=== PATIENT | female | born 1980 | race Caucasian/White ===

== ENCOUNTER 2022-02-17 04:43 | Emergency (ER) | payer BC, SELFPAY ==
[2022-02-17 04:51] VITALS: BP 118/74; PULSE 99; RESP 16; TEMP 36.3; O2SAT 100
--- NOTE | 2022-02-17 05:18 | ED.FEMALEGU ---
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 Patient states since she had her most recent child she has had persistent heavy periods. Patient states that she has also been having more frequent periods. Patient did call her TWISTING OPERATOR, Dr. Chappell, and patient is said to be scheduled for an outpatient ultrasound. Patient states during the night she woke up to use the restroom and found that she had blood through her tampon. Patient states after she removed the tampon she did pass additional clots and she became concerned. Patient denies any lightheaded or dizziness. Patient denies any abdominal pain. Related Data Home Medications Medication Instructions Recorded Confirmed ferrous gluconate 236 mg (27 mg 236 mg PO DAILY 06/02/21 iron) tablet Bifidobacterium infantis 4 mg 4 mg PO DAILY 07/02/21 capsule Allergies Allergy/AdvReac Type Severity Reaction Status Date / Time No Known Allergies Allergy Verified 02/17/22 04:55 Review of Systems Review of Systems: CONSTITUTIONAL: Denies fever, chills, or sweats. EYES: Denies visual changes, redness, or discharge. ENT: Denies rhinorrhea, congestion, sore throat, or otalgia. CARDIOVASCULAR: Denies chest pain, palpitations, or edema. RESPIRATORY: Denies cough or dyspnea. GASTROINTESTINAL: Denies abdominal pain, nausea, vomiting, or diarrhea. GENITOURINARY: Vaginal bleeding SKIN: Denies rash or itching. MUSCULOSKELETAL: Denies back pain, joint pain, or myalgia. NEUROLOGIC: Denies headache, numbness, or weakness. [facility] Past Medical History Medical History Hyperthyroidism Surgical History Surgical History History of appendectomy Family History Family History Grandparent Hypertension Mother Hypertension Father Family history of Alzheimer's disease Social History Social History Smoking status: Former smoker Second hand tobacco smoke exposure: No Alcohol intake: current Drinks per week: 2 Substance use: never Substance use type: does not use Spiritual care concerns: No Agree to blood products: Yes Exam Narrative: APPEARANCE: Well appearing, no pain, no distress, well-nourished. HEAD: normocephalic, atraumatic. EYES: PERRLA/EOMI, conjunctivae clear. NECK: Supple. No adenopathy, no masses. RESPIRATORY: Airway patent, respirations nonlabored. Clear to auscultation bilaterally, no rales, rhonchi, wheezing. CARDIOVASCULAR: Regular rate and rhythm without murmurs rubs or gallops. ABDOMINAL: Soft, nontender, nondistended, normal bowel sounds Pelvic exam: Small amount of clot within the vaginal vault. Patient did have some clot being expressed from the cervix. No rapid refilling of the vaginal vault, no hemorrhaging. MUSCULOSKELETAL: Moves all extremities. Strength/ROM intact, No edema, No calf tenderness. NEURO: Alert. Cranial nerves II through XII intact. Grossly intact SKIN: Warm, dry. Normal Color Course Course Emergency Course: Patient's bleeding has significantly improved compared to what she was experiencing at home. No significant bleeding or hemorrhage witnessed in the emerge department. Patient's blood counts are within normal limits. Patient was encouraged with close follow-up with TWISTING OPERATOR. All questions and concerns were addressed. Patient was stable at time of discharge from the emergency department. Vital Signs Vital signs: Vital Signs Temperature 97.3 F L 02/17/22 04:51 Pulse Rate 99 02/17/22 04:51 Respiratory Rate 16 02/17/22 04:51 B
[2022-02-17] MEDS: SODIUM CHLORIDE 0.9% IV 1,000 ML 999 ML IV CONT (05:37)
[2022-02-17 05:38] LABS: Basophils Absolute Auto 0.1 K/mm3 (0.0-0.1); Basophils Percent Auto 0.9 % (0.2-1.2); Eosinophils Absolute Auto 0.1 K/mm3 (0-0.3); Eosinophils Percent Auto 1.6 % (0-4.4); Hematocrit 35.5 % (37.0-47.0); Hemoglobin 11.2 g/dL (12.0-15.0); Immature Granulocyte Absolute 0.01 K/mm3 (0.00-0.031); Immature Granulocyte Percent A 0.2 % (0-0.5); Lymphocytes Absolute Auto 2.36 K/mm3 (0.9-3.2); Lymphocytes Percent Auto 37.1 % (18.3-44.2); Mean Corpuscular HGB Conc 31.5 g/dl (32-36); Mean Corpuscular Hemoglobin 27.6 pg (26-34); Mean Corpuscular Volume 87.4 fl (80-100); Monocytes Absolute Auto 0.4 K/mm3 (0.1-0.6); Neutrophils Absolute Auto 3.5 K/mm3 (1.3-6.7); Neutrophils Percent Auto 54.2 % (45.5-73.1); Platelet Count Result 241 k/mm3 (150-375); Red Blood Count 4.06 M/mm3 (4.2-5.4); Red Cell Distribution Width 14.6 % (11.5-14.5); White Blood Count 6.4 K/mm3 (4.5-10.0)
[2022-02-17 05:47] LABS: Alanine Aminotransferase 15 U/L (4-35); Albumin Level 4.4 g/dL (3.5-5.1); Alkaline Phosphatase 75 U/L (38-126); Anion Gap 9 mmol/L (8-16); Aspartate Amino Transferase 27 U/L (14-36); Bilirubin,Total 0.2 mg/dL (0.2-1.3); Blood Urea Nitrogen 14 mg/dL (7-17); Calcium 8.4 mg/dL (8.4-10.2); Carbon Dioxide 22 mmol/L (22-30); Chloride 104 mmol/L (98-107); Estimated CRCL calculation 82 ml/min; Estimated Glomerular Filt Rate > 60; Glucose 101 mg/dL (65-110); Potassium 3.4 mmol/L (3.4-5.0); Sodium 135 mmol/L (137-145)
[2022-02-17 05:48] LABS: Add Urine Microscopic? YES; Appearance Urine Cloudy (Clear); Bilirubin Urine 1+ (Negative); Blood Urine 3+ (Negative); Color Urine Red (Yellow); Glucose Urine UA Negative (Negative); Ketones Urine Negative (Negative); Leukocyte Esterase Ur Negative LEU/UL (Negative); Nitrate Urine Negative (Negative); Protein Urine 2+ mg/dL (Negative); Urobilinogen Urine 0.2 mg/dL (<2.0)
[2022-02-17 05:51] LABS: Prothrombin Time 12.5 Seconds (11.1-14.7)
[2022-02-17 05:56] LABS: RBC Urine >75 /hpf (0-2); WBC Urine 16-20 /hpf
[2022-02-17 06:44] VITALS: BP 124/65; PULSE 72; RESP 16; O2SAT 100
== END 2022-02-17 06:45 | disposition home or self-care (01) ==
LOC: ANHED 06:10
PROVIDERS: Emergency Provider Emergency Medicine; PCP Internal Medicine
DX: N93.9 Abnormal uterine and vaginal bleeding, unspecified (principal)
CPT/HCPCS: 36415; 80053; 81001; 81025; 85025; 85610; 85730; 87086; 96360; 99283; J7030

== ENCOUNTER 2023-09-03 21:15 | Observation (INO) | payer BC, SELFPAY ==
--- NOTE | ~2023-09-03 | XR_ITS ---
EXAMINATION: XR chest 2V DATE: 09/03/2023 21:47 INDICATION: Fever and tachycardia TECHNIQUE: PA and lateral views of the chest were obtained. COMPARISON: Chest radiograph dated 01/20/2017 FINDINGS: The lungs remain clear with no focal airspace opacities, pulmonary edema, pleural effusion or pneumot horax. The cardiomediastinal silhouette is normal. Mild thoracic spondylosis. IMPRESSION: 1. No acute cardiopulmonary disease. Reviewed, dictated and finalized at location A.
--- NOTE | ~2023-09-03 | CT_ITS ---
EXAMINATION: CT abdomen pelvis w con DATE: 09/03/2023 23:44 INDICATION: Diarrhea. Nausea. Fever. TECHNIQUE: Computed tomography (CT) of the abdomen and pelvis was performed with 100 mL Omnipaque 350 intravenous contrast. Automated exposure control and iterative reconstruction technique were employe d. The dose-length product was 279.29 mGy-cm. COMPARISON: CT abdomen and pelvis 01/20/2017 FINDINGS: The visualized portions of the lung bases are clear without pneumonia or pleural effusion. The heart size is normal. No pericardial effusion. The liver, gallbladder, spleen, pancreas, adrenal glands, and left kidney are normal. There are cysts in right kidney measuring up to 5.1 cm. There is mild wall thickening from the cecum to the descending colon. The appendix is not visualized. There ar e no pathologically enlarged lymph nodes. There is physiologic fluid in the pelvis. There is a 1.7 cm dominant follicle in right ovary. There is mild lumbar spondylosis. IMPRESSION: 1. Mild wall thickening of the colon, which may be from underdistention or colitis. Reviewed, dictated and finalized at location E. IMPRESSION: 1. Mild wall thickening of the colon, which may be from underdistention or coli tis.
[2023-09-03 21:19] VITALS: BP 133/76; PULSE 147; RESP 14; TEMP 39.1; O2SAT 100
--- NOTE | 2023-09-03 21:35 | ECG_ITS ---
Measurements Intervals [place] Rate: 123 P: 69 VA: 168 QRS: 51 QRSD: 104 T: 63 QT: 407 QTc: 584 Interpretive Statements SINUS TACHYCARDIA INCOMPLETE RIGHT BUNDLE BRANCH BLOCK NONSPECIFIC T-WAVE ABNORMALITY NO PREVIOUS ECG AVAILABLE FOR COMPARISON Electronically Signed On 09-04-2023 12:58:22 CDT by Amauri Horta M.D.
[2023-09-03 21:40] LABS: Hematocrit 36.9 % (37.0-47.0); Hemoglobin 12.3 g/dL (12.0-15.0); Mean Corpuscular HGB Conc 33.3 g/dl (32-36); Mean Corpuscular Hemoglobin 30.4 pg (26-34); Mean Corpuscular Volume 91.3 fl (80-100); Mean Platelet Volume 10.7 fl (7.4-10.4); Platelet Count Result 182 k/mm3 (150-375); Red Blood Count 4.04 M/mm3 (4.2-5.4); Red Cell Distribution Width 13.2 % (11.5-14.5); White Blood Count 14.9 K/mm3 (4.5-10.0)
[2023-09-03 22:00] LABS: Band Neutrophils Percent 6 % (0-6); Lymphocytes Absolute Manual 0.44 K/mm3 (1.1-4.5); Monocytes Absolute Manual 0.29 K/mm3 (0.1-0.90); Monocytes Percent Manual 2 % (3-9); Neutrophils Absolute Manual 14.15 K/mm3 (1.7-7.2); Neutrophils Percent Manual 89 % (46-73); Platelet Estimate Adequate (Adequate); Total Cells Counted 100
[2023-09-03 22:01] LABS: Schistocytes None Seen (NORMAL)
[2023-09-03] MEDS: SODIUM CHLORIDE 0.9% IV 1,000 ML 999 ML IV CONT ×2 (22:09→22:38)
[2023-09-03 22:21] VITALS: O2SAT 97
[2023-09-03 22:22] LABS: Appearance Urine Clear (Clear); Bacteria Urine None Seen /hpf; Bilirubin Urine Negative (Negative); Blood Urine 2+ (Negative); Color Urine Yellow (Yellow); Glucose Urine UA Negative (Negative); Ketones Urine Negative (Negative); Leukocyte Esterase Ur Negative LEU/UL (Negative); Nitrate Urine Negative (Negative); Non Pathogenic Casts 0-2; Protein Urine Negative (Negative); Specific Grav Ur 1.003 (1.001-1.035); Squamous Epithelial Cell Urine None seen /hpf (Few); Urobilinogen Urine 0.2 mg/dL (<2.0); WBC Urine 0-5 /hpf; pH Urine 6.5 (5.0-9.0)
[2023-09-03 22:26] LABS: Lactic Acid Reflex 1.3 mmol/L (0.7-2.0); Potassium 2.9 mmol/L (3.4-5.0)
[2023-09-03 22:36] LABS: Alanine Aminotransferase 20 U/L (6-35); Albumin Level 4.5 g/dL (3.5-5.1); Alkaline Phosphatase 62 U/L (38-126); Anion Gap 10 mmol/L (8-16); Aspartate Amino Transferase 28 U/L (14-36); Bilirubin,Total 0.4 mg/dL (0.2-1.3); Blood Urea Nitrogen 4 mg/dL (7-17); Calcium 8.7 mg/dL (8.4-10.2); Carbon Dioxide 24 mmol/L (22-30); Chloride 99 mmol/L (98-107); Estimated CRCL calculation 71 ml/min; Estimated Glomerular Filt Rate > 60; Glucose 136 mg/dL (65-110); Lipase 53 U/L (23-300); Sodium 133 mmol/L (137-145)
--- NOTE | 2023-09-03 22:39 | ED.FEVER ---
HPI - Fever General Chief Complaint: Fever <FABIANA Lazaro Last Filed: 09/04/23 03:21> Stated Complaint: fever, diarrhea <FABIANA Lazaro Last Filed: 09/04/23 03:21> Time Seen by Provider: 09/03/23 21:35 <FABIANA Lazaro Last Filed: 09/04/23 03:21> Source: patient <FABIANA Lazaro Last Filed: 09/04/23 03:21> Mode of arrival: ambulatory <FABIANA Lazaro Last Filed: 09/04/23 03:21> Limitations: no limitations <FABIANA Lazaro Last Filed: 09/04/23 03:21> History of Present Illness HPI Narrative: Patient is a 42-year-old female who presents ED with report of fever and diarrhea. Patient reports she has been dealing with a dental infection for the last few weeks. She underwent root canal and was placed on clindamycin after this. She finished a week course of clindamycin around 1 week ago. She then developed a fever up to 102 ?F at home and profuse diarrhea today. She noted having several episodes of diarrhea this morning. It seemed to slow down during the day, but became worse again around 6 PM. She notes the diarrhea is green in color and very foul smelling. She was unable to manage her fever at home which prompted her presentation. She did take 1 ibuprofen tablet earlier this morning. Patient also reports having right lower abdominal cramping, nausea. Denies vomiting, rectal bleeding, melena, urinary symptoms, cough, symptoms. Patient states she tested negative for COVID at an urgent care today. <FABIANA Lazaro Last Filed: 09/04/23 03:21> Related Data Home Medications: Home Medications Medication Instructions Recorded Confirmed ferrous gluconate 236 mg (27 mg 236 mg PO DAILY 06/02/21 iron) tablet Bifidobacterium infantis 4 mg 4 mg PO DAILY 07/02/21 capsule (Align) <FABIANA Lazaro Last Filed: 09/04/23 03:21> Allergies/Adverse Reactions: Allergies Allergy/AdvReac Type Severity Reaction Status Date / Time No Known Allergies Allergy Verified 09/03/23 21:50 <Barby Ji PA-C - Last Filed: 09/04/23 03:21> Review of Systems Review of Systems: CONSTITUTIONAL: See HPI. ENT: Denies rhinorrhea, congestion, sore throat. CARDIOVASCULAR: Denies chest pain. RESPIRATORY: Denies cough or dyspnea. GASTROINTESTINAL: See HPI. GENITOURINARY: Denies dysuria or hematuria. MUSCULOSKELETAL: Denies back pain, joint pain, or myalgia. NEUROLOGIC: Denies headache, numbness, or weakness. <Barby Ji PA-C - Last Filed: 09/04/23 03:21> All systems reviewed & are unremarkable except as noted in HPI and below <Barby Ji PA-C - Last Filed: 09/04/23 03:21> PMFSH Past Medical History Medical History: Medical History Hyperthyroidism <Barby Ji PA-C - Last Filed: 09/04/23 03:21> Surgical History Surgical History: Surgical History History of appendectomy <Barby Ji PA-C - Last Filed: 09/04/23 03:21> Family History Family History: Family History Grandparent Hypertension Mother Hypertension Father Family history of Alzheimer's disease <Barby Ji PA-C - Last Filed: 09/04/23 03:21> Social History Social History: Social History Smoking status: Former smoker Second hand tobacco smoke exposure: No Alcohol intake: current Drinks per week: 2 Substance use: never Substance use type: does not use Living arrangements: with family Occupation/Education: occupation Spiritual care concerns: No Agree to blood products: Yes <Barby Ji PA-C - Last Filed: 09/04/23 03:21> Exam Narrative: GENERAL: Well appeari
[2023-09-03] MEDS: ACETAMINOPHEN 500 MG TABLET 1000 MG PO (22:40)
[2023-09-03 22:43] LABS: Procalcitonin 0.1 ng/mL
[2023-09-03 22:45] LABS: Add Urine Microscopic? YES
[2023-09-03 23:08] LABS: Pregnancy On Board Control Positive; Urine Pregnancy Test Negative
[2023-09-03 23:39] VITALS: TEMP 38.2
[2023-09-03 23:44] VITALS: BP 131/63; PULSE 119; RESP 12; O2SAT 98
[2023-09-03] MEDS: POTASSIUM CHLORIDE INJ 40 MEQ in SODIUM CHLORIDE 0.9% IV 500 ML 130 MEQ IVPB (23:44)
[2023-09-03 23:47] VITALS: BP 124/65; PULSE 115; RESP 17; O2SAT 98
[2023-09-04] VITALS (11 sets, daily range): BP systolic 116–128; BP diastolic 58–68; PULSE 79–115; RESP 16–21; TEMP 36.6–37.9; O2SAT 93–99; BMI 24.5
[2023-09-04] MEDS: SODIUM CHLORIDE 0.9% IV 1,000 ML 999 ML IV CONT (03:24)
[2023-09-04 03:25] LABS: Toxigenic C. Diff POSITIVE (NEGATIVE)
--- NOTE | 2023-09-04 04:34 | PM.IMHP ---
H&P: HPI History of Present Illness Date/Time: 09/04/23 04:34 Chief Complaint: Diarrhea abdominal pain Narrative: 42-year-old female low who has no significant possible trip medical history recently had some glucan all and was started on clindamycin which she finished 1 week ago. She started to have diarrhea watery nature multiple episodes foul-smelling green in color for the last 1 day. She also has associated lower abdominal pain off and on cramping in nature 710 intensity. She also had fever chills sweating and nausea. She is unable to hold anything down. She denies chest pain shortness a red she denies urinary symptoms. Review of Systems Review of Systems: All systems reviewed & are unremarkable except as noted in HPI and below Constitutional: Constitutional: Reports body ache(s), Reports fatigue and Reports lethargy Gastrointestinal: Gastrointestinal: Reports abdominal pain and Reports diarrhea PMFSH Past Medical History Medical History Hyperthyroidism Surgical History Surgical History History of appendectomy Family History Family History Grandparent Hypertension Mother Hypertension Father Family history of Alzheimer's disease Social History Social History Smoking status: Former smoker Second hand tobacco smoke exposure: No Alcohol intake: current Drinks per week: 2 Substance use: never Substance use type: does not use Living arrangements: with family Occupation/Education: occupation Spiritual care concerns: No Agree to blood products: Yes Meds Home Medications and Allergies Home Medications Medication Instructions Recorded Confirmed Type albuterol sulfate 90 mcg/actuation 2 inh inhalation Q4H PRN shortness 06/02/21 06/02/21 Rx aerosol inhaler (Ventolin HFA) of breath or wheezing #8.5 grams ferrous gluconate 236 mg (27 mg 236 mg PO DAILY 06/02/21 History iron) tablet Bifidobacterium infantis 4 mg 4 mg PO DAILY 07/02/21 History capsule (Align) Allergies Allergy/AdvReac Type Severity Reaction Status Date / Time No Known Allergies Allergy Verified 09/03/23 21:50 Vital Signs Vital Signs - 24 hr 09/03/23 21:19 09/03/23 22:21 09/03/23 23:39 Temperature 102.3 F H 100.8 F H Pulse Rate 147 H Respiratory Rate 14 Blood Pressure 133/76 Pulse Oximetry 100 97 Oxygen Delivery Room Air 09/03/23 23:47 09/03/23 23:44 09/04/23 00:38 Temperature 99.2 F Pulse Rate 115 H 119 H Respiratory Rate 17 12 Blood Pressure 124/65 131/63 Pulse Oximetry 98 98 Oxygen Delivery 09/04/23 01:44 09/04/23 02:49 09/04/23 03:26 Temperature 97.9 F 99.2 F Pulse Rate 115 H 108 H 114 H Respiratory Rate 21 H 20 16 Blood Pressure Pulse Oximetry 98 97 93 Oxygen Delivery Exam Narrative: General : alert awake oriented not in distress HEENT: PERRLA extraocular movements intact Neck : supple no JVD Heart : S1 and S2 tachycardia Chest : bilateral air entry no wheezing or crackles Abdomen : soft mild tenderness bowel sounds present Extremities : no ankle edema Skin : no erythema or redness noted 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
--- NOTE | 2023-09-04 05:10 | ADMGEN ---
This patient, Prerna Gustafson, was admitted to Medical Room 249-01. Patient/family oriented to hospital policies and general routines including ID bracelet, bed and alarms, visiting hours, pain management, procedures, bathroom and other care routines, personal items, smoking policy, room service/diet, and visiting hours. Information on how to activate the Rapid Response Team has been discussed. Patient/Family are encouraged to report perceived risks to care and to ask questions if they do not understand what they are told or what they should do.
[2023-09-04] MEDS: FIDAXOMICIN 200 MG TABLET PO ×2 (05:51→20:04)
[2023-09-04] MEDS: ACETAMINOPHEN 325 MG TABLET 650 MG PO (05:51)
[2023-09-04] MEDS: KCL 20 MEQ/SW 100 ML 100 ML 50 MEQ IVPB (05:52)
[2023-09-04] MEDS: SODIUM CHLORIDE 0.9% IV 1,000 ML 125 ML IV CONT ×2 (05:52→13:19)
[2023-09-04 06:39] LABS: Magnesium 1.9 mg/dL (1.6-2.3); Phosphorus 2.4 mg/dL (2.5-4.5)
[2023-09-04 07:53] LABS: Basophils Percent Auto 0.3 % (0.2-1.2); Eosinophils Absolute Auto 0.1 K/mm3 (0-0.3); Eosinophils Percent Auto 0.6 % (0-4.4); Hematocrit 33.2 % (37.0-47.0); Hemoglobin 10.7 g/dL (12.0-15.0); Immature Granulocyte Absolute 0.05 K/mm3 (0.00-0.031); Immature Granulocyte Percent A 0.4 % (0-0.5); Lymphocytes Percent Auto 6.9 % (18.3-44.2); Mean Corpuscular HGB Conc 32.2 g/dl (32-36); Mean Corpuscular Hemoglobin 30.4 pg (26-34); Mean Corpuscular Volume 94.3 fl (80-100); Mean Platelet Volume 10.7 fl (7.4-10.4); Monocytes Absolute Auto 0.9 K/mm3 (0.1-0.6); Monocytes Percent Auto 7.1 % (2.6-8.5); Neutrophils Percent Auto 84.7 % (45.5-73.1); Platelet Count Result 136 k/mm3 (150-375); Red Blood Count 3.52 M/mm3 (4.2-5.4); Red Cell Distribution Width 13.4 % (11.5-14.5)
[2023-09-04 08:09] LABS: Alanine Aminotransferase 16 U/L (6-35); Albumin Level 3.5 g/dL (3.5-5.1); Alkaline Phosphatase 57 U/L (38-126); Anion Gap 8 mmol/L (8-16); Aspartate Amino Transferase 23 U/L (14-36); Bilirubin,Total 0.4 mg/dL (0.2-1.3); Blood Urea Nitrogen 2 mg/dL (7-17); Calcium 7.6 mg/dL (8.4-10.2); Carbon Dioxide 20 mmol/L (22-30); Chloride 107 mmol/L (98-107); Estimated CRCL calculation 81 ml/min; Estimated Glomerular Filt Rate > 60; Glucose 116 mg/dL (65-110); Potassium 3.2 mmol/L (3.4-5.0); Sodium 135 mmol/L (137-145)
[2023-09-04] MEDS: HEPARIN SODIUM 5,000 UNITS/ML VIAL 5000 UNITS SUB-Q ×2 (08:53→20:04)
[2023-09-04] MEDS: PANTOPRAZOLE SODIUM IV 40 MG VIAL IV PUSH (08:53)
[2023-09-04] MEDS: POTASSIUM CHLORIDE INJ 40 MEQ in SODIUM CHLORIDE 0.9% IV 500 ML 130 MEQ IVPB (09:01)
--- NOTE | 2023-09-04 11:54 | PM.IMPN ---
Progress Note: A&P Assessment and Plan (1) C. difficile colitis: Code(s): A04.72 - Enterocolitis due to Clostridium difficile, not specified as recurrent Status: Acute Assessment and Plan: On presentation patient's white blood cell count was 14.9. CT abdomen pelvis revealing mild wall thickening of the colon C diff came back positive Patient started on Dificid b.i.d. IV fluids continued. Anti emetics and analgesics p.r.n. Care coordination consult for Dificid. (2) Pancolitis: Code(s): K51.00 - Ulcerative (chronic) pancolitis without complications Status: Acute Assessment and Plan: Secondary to Clostridium difficile following clindamycin use (3) Acute hypokalemia: Code(s): E87.6 - Hypokalemia Status: Acute Assessment and Plan: Potassium 2.9 on presentation. Potassium replaced. Plan GI DVT prophylaxis Subjective Date/time seen: 09/04/23 11:54 Interval history: Patient continues to have frequent bowel movements although she states that she is feeling better now that she does not have fever. Explained to the patient that we would like her to be 24 hour fever free prior to discharge. She was started on Dificid. She denies hematochezia, melena, nausea and vomiting. She states that her abdomen is not currently painful but it does cramp when she needs have a bowel movement. Exam Narrative: GENERAL: Comfortable, no acute distress HENMT: moist mucous membranes EYES: EOM intact b/l NECK: no lymphadenopathy RESPIRATORY: clear to auscultation CARDIO: RRR GI: soft, nontender, Hyperactive bowel sounds SKIN: no rashes EXTREMITIES: no edema, redness or tenderness Objective Data Vital Signs Vital Signs: Vital Signs - 24 hr 09/03/23 21:19 09/03/23 22:21 09/03/23 23:39 Temperature 102.3 F H 100.8 F H Pulse Rate 147 H Respiratory Rate 14 Blood Pressure 133/76 Pulse Oximetry 100 97 Oxygen Delivery Room Air 09/03/23 23:47 09/03/23 23:44 09/04/23 00:38 Temperature 99.2 F Pulse Rate 115 H 119 H Respiratory Rate 17 12 Blood Pressure 124/65 131/63 Pulse Oximetry 98 98 Oxygen Delivery 09/04/23 01:44 09/04/23 02:49 09/04/23 03:26 Temperature 97.9 F 99.2 F Pulse Rate 115 H 108 H 114 H Respiratory Rate 21 H 20 16 Blood Pressure Pulse Oximetry 98 97 93 Oxygen Delivery 09/04/23 05:51 09/04/23 06:51 09/04/23 09:20 Temperature 100.2 F H 98.8 F 99.1 F Pulse Rate 94 Respiratory Rate 16 Blood Pressure 128/61 Pulse Oximetry 98 Oxygen Delivery Intake/Output Intake/Output: Intake & Output 09/01/23 09/02/23 09/03/23 09/04/23 23:59 23:59 23:59 23:59 Intake Total 3520 Balance 3520 Meds/Results Medications: Active Medications Generic Name Dose Route Start Last Admin Trade Name Freq PRN Reason Stop Dose Admin Acetaminophen 650 mg 09/04/23 04:15 09/04/23 05:51 Acetaminophen 325 Mg Tablet PO 650 mg Q4H PRN Administration Mild Pain (1-3) or Fever Fidaxomicin 200 mg 09/04/23 21:00 Fidaxomicin 200 Mg Tablet PO 09/13/23 21:01 Q12HR BROOK Heparin Sodium (Porcine) 5,000 units 09/04/23 09:00 09/04/23 08:53 Heparin Sodium 5,000 Units/Ml Vial SUB-Q 5,000 units Q12HR BROOK Administration Sodium Chloride 1,000 mls @ 125 mls/hr 09/04/23 04:15 09/04/23 05:52 Normal Saline Iv IV CONT 125 mls/hr .Q8H BROOK Administration Potassium Chloride 40 meq/ 520 mls @ 130 mls/hr 09/04/23 08:28 09/04/23 09:01 Sodium Chloride IVPB 09/04/23 12:27 130 mls/hr ONCE ONE Administration Melatonin 5 mg 09/04/23 04:41 Melatonin 5 Mg Tablet PO HS PRN Insomnia Morphine Sulfate 2 mg 09/04/23 04:41 Morphine Sulfate (*Crx) 2 Mg/Ml Inj IV PUSH Q4H PRN Pain Rated 7-10 Ondansetron HCl 4 mg 09/04/23 04:15 Ondansetron Inj 4 Mg/2 Ml Vial IV PUSH Q4H PRN Nausea Pantoprazole Sodium 40 mg 09/04/23
[2023-09-05 00:58] VITALS: BP 109/62; PULSE 62; RESP 14; TEMP 37.1; O2SAT 94
[2023-09-05] MEDS: SODIUM CHLORIDE 0.9% IV 1,000 ML 125 ML IV CONT (01:14)
[2023-09-05 05:27] LABS: Hematocrit 31.3 % (37.0-47.0); Hemoglobin 10.1 g/dL (12.0-15.0); Immature Platelet Fraction Pct 2.4 % (0.9-11.2); Mean Corpuscular HGB Conc 32.3 g/dl (32-36); Mean Corpuscular Hemoglobin 30.1 pg (26-34); Mean Corpuscular Volume 93.4 fl (80-100); Mean Platelet Volume 10.1 fl (7.4-10.4); Platelet Count Result 105 k/mm3 (150-375); Red Blood Count 3.35 M/mm3 (4.2-5.4); Red Cell Distribution Width 13.5 % (11.5-14.5); White Blood Count 7.9 K/mm3 (4.5-10.0)
[2023-09-05 05:42] LABS: Alanine Aminotransferase 16 U/L (6-35); Albumin Level 3.2 g/dL (3.5-5.1); Alkaline Phosphatase 54 U/L (38-126); Anion Gap 6 mmol/L (8-16); Aspartate Amino Transferase 21 U/L (14-36); Bilirubin,Total 0.3 mg/dL (0.2-1.3); Calcium 7.8 mg/dL (8.4-10.2); Carbon Dioxide 20 mmol/L (22-30); Chloride 110 mmol/L (98-107); Estimated CRCL calculation 81 ml/min; Estimated Glomerular Filt Rate > 60; Glucose 87 mg/dL (65-110); Potassium 3.4 mmol/L (3.4-5.0); Sodium 136 mmol/L (137-145)
[2023-09-05 05:55] LABS: Blood Urea Nitrogen < 2 mg/dL (7-17)
[2023-09-05 06:38] VITALS: BP 115/63; PULSE 82; RESP 16; TEMP 36.7; O2SAT 99
[2023-09-05 08:00] VITALS: PULSE 72; RESP 14; O2SAT 97
[2023-09-05 08:30] VITALS: BP 116/60; PULSE 72; RESP 14; TEMP 36.4; O2SAT 97
[2023-09-05] MEDS: FIDAXOMICIN 200 MG TABLET PO (08:50)
[2023-09-05] MEDS: PANTOPRAZOLE SODIUM IV 40 MG VIAL IV PUSH (08:51)
--- NOTE | 2023-09-05 11:13 | PM.DS ---
DS: Admitting Diagnosis Discharge Date 09/05/23 Admitting Diagnosis C. Diff DS: Discharge Diagnosis Discharge Diagnosis (1) C. difficile colitis: Code(s): A04.72 - Enterocolitis due to Clostridium difficile, not specified as recurrent Status: Acute (2) Pancolitis: Code(s): K51.00 - Ulcerative (chronic) pancolitis without complications Status: Acute (3) Acute hypokalemia: Code(s): E87.6 - Hypokalemia Status: Acute DS: Summary Hospital Course Hospital Course: This is a 42-year-old female with insignificant past medical history that presented to the ED due to watery diarrhea that she is experiencing multiple times a day. Patient had recently been on clindamycin for a tooth abscess and finish the prescription approximately 1 week prior to presenting. Patient also had accompanying abdominal pain and fever. She is found to have a white blood cell count of 14.9. CT abdomen pelvis revealed mild wall thickening of the colon. C diff came back positive and she was started on Dificid b.i.d.. IV fluids initiated. Patient received 3 doses of Dificid and her abdominal pain was significantly better as well as frequency of diarrhea was improved. She was found to have potassium 2.9 on presentation and this was replaced. She has remained 24 hours fever free. Will discharge patient home to complete antibiotic course. Her labs and vital signs are stable and she is medically cleared for discharge at this time. Time Spent with Patient Time attestation: Total time spent providing and/or coordinating discharge services: Exam Narrative: GENERAL: Comfortable, no acute distress HENMT: moist mucous membranes EYES: EOM intact b/l NECK: no lymphadenopathy RESPIRATORY: clear to auscultation CARDIO: RRR GI: soft, nontender, bowel sounds present SKIN: no rashes EXTREMITIES: no edema, redness or tenderness DS: Data Data Completed and Pending Labs on day of discharge: Labs from last 24 hours 09/05/23 05:05 WBC 7.9 RBC 3.35 L Hgb 10.1 L Hct 31.3 L MCV 93.4 MCH 30.1 MCHC 32.3 RDW 13.5 Plt Count 105 L MPV 10.1 % Immature Plt Fraction 2.4 Sodium 136 L Potassium 3.4 Chloride 110 H Carbon Dioxide 20 L Anion Gap 6 L BUN < 2 L Creatinine 0.60 L Estim Creat Clear Calc 81 Estimated GFR > 60 Glucose 87 Calcium 7.8 L Total Bilirubin 0.3 AST 21 ALT 16 Alkaline Phosphatase 54 Total Protein 6.0 L Albumin 3.2 L Preliminary micro results at discharge 09/03/23 22:04 Blood Culture - Preliminary Blood 09/03/23 22:04 Blood Culture - Preliminary Blood Discharge Plan Discharge Attending physician on discharge: Yassine Escobar Discharging Clinician: Vonda Kapoor Patient Disposition: Home, Self-Care Activity: as tolerated Diet: bland Discharge Instructions: Dificid 200 mg twice daily Seek immediate care if: If you abdomen is hard or feels swollen You have black or bright red bowel movements You vomit blood Her sugar breath artery filling care going to faint If you have any of the on signs of dehydration: dizziness, weakness, extreme sleepiness, dry mouth, cracked lips, feeling thirsty, fast heartbeat, rapid breathing, very little or no urine. Call your doctor if: You have a fever Your signs and symptoms get worse Your signs and symptoms do not go away, or, even after treatment You cannot eat or drink Prevention: Washing hands with soap and water often He washing hands before preparing food in after uses the bathroom Avoid alcohol based [facility] assisted living due to C. diff being alcohol resistant Clean surface is often. You can create a disinfecting airplane cleaner by mixing 1 part bleach 10 parts water. C. diff is contagious until diarrhea has stopped Stay hydrated Thank you for [facility]! Patient Instructions: Antibiotic Form Stand Alone Forms: General Discharge Information Follow-up/Referrals: Vivian,Monty
[2023-09-05 12:00] VITALS: BP 120/63; PULSE 68; RESP 14; TEMP 36.3; O2SAT 97
== END 2023-09-05 15:06 | disposition home or self-care (01) ==
LOC: ANHED 09-04 04:17 → ANH2MED 09-04 05:06
PROVIDERS: Internal Medicine Critical Care Medicine; Physician Assistant; Admitting Provider Internal Medicine; Emergency Provider Emergency Medicine; PCP Internal Medicine; Visit Provider Internal Medicine
DX: A04.72 Enterocolitis due to Clostridium difficile, not specified as recurrent (principal); K51.00 Ulcerative (chronic) pancolitis without complications; E87.6 Hypokalemia; E05.90 Thyrotoxicosis, unspecified without thyrotoxic crisis or storm; R06.02 Shortness of breath; R94.31 Abnormal electrocardiogram [ECG] [EKG]; Z90.49 Acquired absence of other specified parts of digestive tract; Z87.891 Personal history of nicotine dependence; F10.90 Alcohol use, unspecified, uncomplicated; Z79.51 Long term (current) use of inhaled steroids
CPT/HCPCS: 36415; 71046; 74177; 80053; 81001; 81025; 83605; 83690; 83735; 84100; 84145; 85025; 85027; 85055; 85610; 85730; 87040; 87493; 93005; 96361; 96365; 96366; 96375; 96376; 99285; A9270; C9113; G0378; J1644; J3480; J7030; J7040; Q9967

== ENCOUNTER 2023-09-20 07:53 | Outpatient (CLI) | payer BC, SELFPAY ==
--- NOTE | ~2023-09-20 | CT_ITS ---
CORRECTED REPORT Ordering Provider changed from Ernesto Lawrence MD to Ernesto Lawrence DO [id number] EXAMINATION: CT sinus wo con DATE: 09/20/2023 08:24 INDICATION: Chronic sinusitis for 3 to 4 weeks.. Cough. Bronchitis. TECHNIQUE: Computed tomography (CT) of the paranasal sinuses was performed without contrast. Iterative reconstruction technique was employed. Exam dose: 339.79 mGy-cm total exam DLP. COMPARISON: None FINDINGS: Rightward bowing of nasal septum. Intralamellar cell of both middle nasal turbinates. There is mild soft tissue swelling of the left nasal turbinates and more prominent soft tissue swelling of the right nasal turbinates. The ostiomeatal units are patent. Approximately 1 cm focal mucoperiosteal thickening, polyp or mucous retention cyst in the posterior lower left maxillary antrum. The paranasal sinuses are otherwise normally developed and aerated. Normally developed and aerated mastoid air cells are noted bilaterally. Middle and inner ear apparatus appear normal bilaterally. IMPRESSION: Rightward bowing of nasal septum Asymmetric soft tissue swelling of right nasal turbinates Intralamellar cell of both middle nasal turbinates 1 cm focal soft tissue density inferior aspect of left maxillary antrum Otherwise patent paranasal sinuses, ostiomeatal units and mastoid air cells Reviewed, dictated and finalized at Location A. Reviewed, dictated and finalized at location L. MTDD
== END 2023-09-20 07:54 | disposition home or self-care (01) ==
LOC: ANHIMG 07:57
DX: J32.9 Chronic sinusitis, unspecified (principal); J34.2 Deviated nasal septum
CPT/HCPCS: 70486

== ENCOUNTER 2025-02-24 22:24 | Emergency (ER) | payer BC, SELFPAY ==
[2025-02-24 22:26] VITALS: BP 129/72; PULSE 76; RESP 14; TEMP 36.5; O2SAT 100
--- OUTSIDE RECORDS SUMMARY | 2025-02-24 22:27 | XMS_ITS | Clinical Summary ---
Author Organization [facility] Address [address] [place] [address] Care Team Providers Care Enterprise Solutions Architect Name Role Phone Unavailable Primary Care Provider Unavailabl e Immunizations Immunization Administration Dates Next Due INFLUENZA VACCINE QUADRIVALENT 6 MOS UP PF IM Social History Tobacco Use Types Packs/Day Years Used Date Smoking Tobacco: Never Assessed Comments Unknown Sex and Gender Information Value Date Recorded Sex Assigned at Not on file Legal Sex Female 1:56 PM CDT Gender Identity Not on file Sexual Orientation Not on file Plan of Treatment Health Maintenance Due Date Last Done Comments DTAP/TDAP/TD VACCINES (1 - Tdap) 1998 HEPATITIS B VACCINES (1 of 3 - 19+ 3-dose series) 1998 HPV/Cotest (21-29) 2000 CERVICAL CANCER SCREENING 2009 HPV/Cotest (30-65) 2009 PAP SMEAR 2009 BREAST CANCER SCREENING 02/15/2024 02/15/20 23, 12/25/2021, 11/10/2021 INFLUENZA VACCINE (#1) 2024 11/27/2023 COLORECTAL SCREENING 2024 Colorectal Cancer Screening 2024 FIT-DNA Q 3 years 2024 FIT/FOBT Q 1 year 2024 Flex Sig/CT Colonography Q 5 years 2024 HPV VACCINES Aged Out No longer eligi ble based on patient's age to complete this topic Insurance BCBS BLUE ACCESS CHOICE RX GENERIC COMMERCIAL Commercial
--- OUTSIDE RECORDS SUMMARY | 2025-02-24 22:27 | XMS_ITS | Encounter Summary ---
Author Organization [facility] Address [address] [place] [address] Phone Care Team Providers Care Flight Superintendent Name Role Phone Ernesto Lawrence DO Primary Care Provider [phone] Courtney Francois DO Primary Care Provider + Courtney Francois DO Primary Care Provider + Ana Baires MD Unavailable + [phone] Andriy Higginbotham MD Unavailable [phone] Nicolle Schmidt NP Unavailable [phone] Courtney Francois DO Primary Care Provider + Ernesto Lawrence DO Primary Care Provider + [phone] Elicia Rogers MD Unavailable [phone] Peng Sandoval Unavailable Unavailabl e Pippa Funes MD Unavailable [phone] Encounter Details Date Type Department Care Team (Latest Contact Info) Description 01/28/2017 Orders Only [facility] Scanning, Provider Social History Tobacco Use Types Packs/Day Years Used Date Smoking Tobacco: Never Assessed Comments Unknown Sex and Gender Information Value Date Recorded Sex Assigned at Not on file Legal Sex Female 9:53 AM CAMERA OPERATOR Gender Identity Not on file Sexual Orientation Not on file documented as of this encounter Plan of Treatment Not on file documented as of this encounter Procedures Procedure Name Priority Date/Time Associated Diagnosis Comments SCAN - LABS 01/28/2017 documented in this encounter Results * SCAN - LABS (01/28/2017) us Provider Scanning Final Result documented in this encounter Visit Diagnoses Not on filedocumented in this encounter Additional Health Concerns Infection Onset Date Last Indicated Resolved Time COVID: Suspected 12/02/2022 12/02/2022 12/02/2022 8:24 AM CAMERA OPERATOR COVID: Suspected 09/03/2023 09/03/2023 09/03/2023 7:04 PM CDT COVID: Suspected 09/03/2023 09/03/2023 09/04/2023 12:32 AM CDT documented as of this encounter Care Teams Flight Superintendent Relationship Specialty Start Date End Date Ernesto Lawrenec DO [address] [address] PCP - General 01/11/17 05/28/19 Courtney Francois DO [address] [place] [address] PCP - General Family Medicine 05/29/19 05/29/19 Courtney Francois DO [address] [place] [address] PCP - General Family Medicine 05/30/19 10/29/20 Courtney Francois DO [address] [place] [address] PCP - General Family Medicine 10/30/20 12/15/21 Ernesto Lawrence DO [address] [address] PCP - General 12/16/21 Ana Baires MD [facility] [place] [address] Consulting Physician Endocrinology 08/15/19 Andriy Higginbotham MD [address] [address] Consulting Physician Endocrinology Diabetes & Metabolism 10/30/20 Nicolle Schmidt NP [address] [address] Nurse Practitioner Nurse Practitioner 10/30/20 [place] [address] [place] [address] Consulting Physician Obstetrics and Gynecology 10/12/22 06/17/24 Peng Sandoval, PA Internal Medicine 10/11/23 [place] [address] [place] [address] Consulting Physician Obstetrics and Gynecology 06/18/24 documented as of this encounter
--- OUTSIDE RECORDS SUMMARY | 2025-02-24 22:27 | XMS_ITS | Clinical Summary ---
Author Organization [facility] Address [address] [place] [address] Care Team Providers Care Engineering Officer Name Role Phone Ana Baires MD Unavailable + [phone] Andriy Higginbotham MD Unavailable [phone] Nicolle Schmidt ADULT REMEDIAL EDUCATION INSTRUCTOR Unavailable [phone] Ernesto Lawrence DO Primary Care Provider [phone] Peng Sandoval Unavailable Unavailabl e Pippa Funes MD Unavailable [phone] Allergies Active Allergy Reactions Criticality Noted Date Comments Clindamycin Other (See comments) Low 03/02/2024 Hx of c-diff Medications azelastine (ASTELIN) 137 mcg (0.1 %) nasal spray Administer 2 sprays into each nostril daily 12 9 Active cetirizine (ZyrTEC) 5 mg tablet Take 1 tablet (5 mg total) by mouth daily Active multivitamin capsule Take 1 capsule by mouth daily Active chlorhexidine (PERIDEX) 0.12 % solution RINSE AND SPIT 15ML BY MOUTH TWICE DAILY 3 Active ibuprofen (ADVIL,MOTRIN) 800 mg tablet 3 Active vit 27-erid-oqczs-d matthews 27mg iron- 800 mcg-250 mg capsule Take by mouth Active triamcinolone (NASACORT) 55 mcg nasal inhaler Administer 2 sprays into each nostril daily as needed for rhinitis Active progesterone (Prometrium) 200 mg capsuleIndicati ons:Hormone replacement therapy Take 1 capsule (200 mg total) by mouth nightly Take one by mouth at bedtime 90 capsule 4 4 Active Additional Information Patient not taking.Reported on 01/17/2025 metroNIDAZOLE (METROGEL) 0.75 % (37.5mg/5 gram) vaginal gelIndications: Bacterial Vaginosis Apply vaginally every night for 5 nights. 70 g 5 01/28/20 25 Active Problems Problem Noted Date Diagnosed Date Snoring 03/08/2024 Assessment & Plan (03/08/2024 11:37 AM CDT): The patient presents with snoring and daytime fatigue. Per her request, I have ordered a home sleep test and she will follow-up here in 3 months. 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 Assessment & Plan (10/31/2020 11:08 AM FOOD EXPEDITOR): TFT's WNL and stable x 1 year, may return to PCP with annual monitoring of TSH/free T4 No further f/u with Endocrine necessary if TFT's remain WNL Assessment & Plan (05/29/2019 7:24 PM CDT): Reviewed thyroid labs since March 2019 until recently and also thyroid imaging report Suspect thyroiditis , currently patient is in recovery phase Recommend no thyroid medication at this point Now patient clinically euthyroid Recheck thyroid lab functions every 6 weeks and further steps based on repeat thyroid lab Labs in 6 weeks Follow-up in 3 months. Low grade squamous intraepit helial lesion (LGSIL) on cervicovaginal cytologic smear 06/09/2016 Endometriosis of ovary 09/25/2014 Cyst of fallopian tube 05/28/2014 Encounters Date Type Department Care Team Description 01/22/2025 Orders Only [facility] [address] [address] Pippa Funes MD Vaginal discharge (Primary Dx) 01/18/2025 Results Follow-Up [facility] [address] [address] [phone] Amy Garcia NP 01/17/2025 7:16 PM FOOD EXPEDITOR - 01/17/2025 11:59 PM FOOD EXPEDITOR Hospital Encounter [facility] [address] [place] [id number] Vaginal discharge Discharge Disposition: Discharge to home or self care 01/17/2025 8:55 AM FOOD EXPEDITOR Office Visit [facility] [place] [phone] Amy Garcia NP Vaginal discharge (Primary Dx); Pelvic and perineal pain 01/16/2025 Telephone [facility] [place] [phone] Pippa Funes MD Vaginitis/Bacterial Vaginosis from Last 3 Months Surgical History Surgery Date Site/Laterality Comments [place] HYSTEROSCOPY BX ENDOMETRIUM&/POLYPC W/WO D&C Hysteroscopy - (Added by TW Conv) SECTION 11/21/2018 - 11/20/2019 PELVIC LAPAROSCOPY APPENDECTOMY Medical History Medical History Date Comments Encounter for test Enc ounter for test - (Added by TW Conv) Encounter for test Unc onfirmed - (Added by TW Conv) History of recurrent pneumonia H istory of pneumonia - (Added by TW Conv) Family History Medical History Relation Name Comments Hypertension Mother Cancer Other 1 Reported Family History Of Cancer - uncle (Added by TW Conv) Hypertension Other 2 Reported Previo us High Blood Pressure - mom/grandma (Added by TW Conv) Breast cancer Neg Hx Ovarian cancer Neg Hx Relation Name Status Comments Mother Other 1 Other 2 Social History Tobacco Use Types Packs/Day Years Used Date Smoking Tobacco: Former Cigarettes Q uit: 2008 Passive Smoke Exposure: Never Smokeless Tobacco: Never Tobacco Cessation:Counseling Given: Not Answered Alcohol Use Standard Drinks/Week Comments Not Currently 0 (1 standard drink = 0.6 oz pur e alcohol) AUDIT-C Answer Date Recorded Frequency of Alcohol Consumption Not on file 05/02/2023 Q2: How many drinks containi ng alcohol do you have on a typical day when you are drinking? Patient does not drink Frequency of Binge Drinking Not on file 04/21 PHQ-2 Answer Date Recorded PHQ-2 Score 0 07/11/2019 Comments No Sex and Gender Information Value Date Recorded Sex Assigned at Not on file Legal Sex Female 9:53 AM FOOD EXPEDITOR Gender Identity Not on file Sexual Orientation Not on file Obstetrics History Para Term AB IAB SAB Ectopic Multiple Livin g Live Births 1 1 1 1 1 Date Outcome GA Total Labor Labor/2nd/3rd Weight Sex Type Anes PTL Evi A1 A5 Name Clin 2019 Term F CS-Un spec Living Comments '19 IVF Last Filed Vital Signs Vital Sign Reading Time Taken Comments Blood Pressure 125/71 01/17/2025 9:05 AM FOOD EXPEDITOR Pulse 78 03/08/2024 11:09 AM CDT Temperature 36.4 C (97.6 F) 03/08/2024 11:09 AM CDT Respiratory Rate 18 03/08/2024 11:09 AM CDT Oxygen Saturation 97% 03/08/2024 11:09 AM CDT Inhaled Oxygen Concentration - - Weight 59.4 kg (131 lb) 01/17/2025 9:05 AM FOOD EXPEDITOR Height 160 cm (5' 3 ) 01/17/2025 9:05 AM FOOD EXPEDITOR Body Mass Index 23.21 01/17/2025 9:05 AM FOOD EXPEDITOR Plan of Treatment Health Maintenance Due Date Last Done Comments Colon Cancer Screening-Colonoscopy 1979 Hepatitis C Screening 1979 Hepatitis B Screening 1997 Depression Screening 05/29/2020 05/29/2019 Breast Cancer Screening-Mammogram 02/15/2025 02/16/2024, 02/14/2023, 02/14/2023, Additional history exists Cervical Cancer Screening 06/18/2025 06/18/2024, Regular Well Visit/Exam 18-64 06/18/2025 06/18/2024, 06/17/2023 Influenza Vaccine (Season Ended) 2025 11/27/2023, 11/10/2019 DTaP/Tdap/Td Vaccine (2 - Td or Tdap) 09/12/2028 09/12/2018 HPV Vaccines Aged Out No longer eligi ble based on patient's age to complete this topic Pneumococcal vaccine <65 Aged Out No longer eligible based on patient's age to complete this topic Procedures Procedure Name Priority Date/Time Associated Diagnosis Comments VAGINITIS PANEL Routine 01/17/2025 12:00 PM FOOD EXPEDITOR Vaginal discharge THINPREP IMAGING PAP AND HPV MRNA E6/E7 REFLEX HPV 16,18/45 Routine 06/18/2024 1:23 PM CDT Encounter for well woman exam with routine gynecological exam SCREENING MAMMOGRAM BILATERAL W ILIA Schedule Routine, Read Routine (OP Routine) 02/16/2024 9:13 AM CDT Screening mammogram, encounter for from Last 3 Months or Most Recently Relevant to Health Maintenance Results * (ABNORMAL) Vaginitis panel Vaginal (01/17/2025 12:00 PM FOOD EXPEDITOR) Pathologist [facility] Cristy DNA probe Not Detected Not Detected Gardnerella DNA probe Detected(A) Not Detected [facility] Trichomonas DNA probe Not Detected Not Detected [facility] Comment: Interpretive Data Testing performed by [facility] via Affirm VPIII Microbial Identification Test, a DNA probe test for use in the detection and identification of Cristy species, Gardnerella vaginalis and Trichomonas vaginalis nucleic acid in vaginal fluid specimens from patients with symptoms of vaginitis/vaginosis. Negative results for these tests suggest the patient does not have candidiasis, bacterial vaginosis and/or trichomoniasis when consistent with clinical signs and symptoms. Current interpretive data was last revised on 2020. Vaginal 01/17/2025 12:0 0 PM FOOD EXPEDITOR 01/17/2025 8:42 PM FOOD EXPEDITOR us Amy Garcia NP LAB MICROBIOLOGY - GENERAL OR DERABLES Final Result [facility] [address] Department [place] [address] * ThinPrep(R) Imaging Pap and HPV mRNA E6/E7 Reflex HPV 16,18/45 (06/18/2024 1:23 PM CDT) [facility] CLINICAL INFORMATION: Original [facility] Comment:43YO WWE LMP [facility] Comment:NONE GIVEN Previous Pap [facility] Comment:NONE GIVEN Prev. Bx [facility] Comment:NONE GIVEN SOURCE: [facility] Comment:None given Pap, specimen adequacy [facility] Comment: Satisfactory for evaluation. Endocervical/transformation zone component present. Age and/or menstrual status not provided HPV interp [facility] Comment: Cytology Results: Negative for intraepithelial lesion or malignancy. COMMENTS [facility] Comment: This Pap test has been evaluated with computer assisted technology. Accounting Tutor Que [facility] Comment: TMK, CT(ASCP) CT screening location: [place] [address] [address] [address] Comment [facility] Comment: EXPLANATORY NOTE: The Pap is a screening test for cervical cancer. It is not a diagnostic test and is subject to false negative and false positive results. It is most reliable when a satisfactory sample, regularly obtained, is submitted with relevant clinical findings and history, and when the Pap result is evaluated along with historic and current clinical information. Human papillomavirus RNA, High Risk E6/E7 Not Detected Not Detected [facility] Comment: Methodology: Engineer Internship-Mediated Amplification This assay detects E6/E7 viral messenger RNA (mRNA) from 14 high-risk HPV types (16,18,31,33,35,39,45,51,52,56,58,59,66,68). Cervical sources are required for HPV testing. If a vaginal source from a patient who has had a total hysterectomy with removal of cervix was submitted, please contact the testing laboratory for alternative testing options. For additional information, please refer to http://education.CTS Media/faq/VBJ935w6 (This link if provided for information/ educational purposes only.) Swab (Cervical) 06/18/2024 1 :23 PM CDT 06/19/2024 2:06 AM CDT Pippa Funes MD LAB CYTOLOGY ORDERABLES F inal Result [place] [address] [address] [place] [address] [facility] [address] [address] [address] * Screening Mammogram Bilateral W Ilia (02/16/2024 9:13 AM CDT) Anatomical Region Laterality Modality Breast Bilateral Mammography 02/16/2024 Impressions 02/16/2024 9:35 AM CDT There is no mammographic evidence of malignancy. A return to screening mammogram in 1 year is recommended. BI-RADS Category 1: Negative Narrative 02/16/2024 9:35 AM CDT EXAM: Bilateral Digital Screening Mammogram With Tomosynthesis - 02/16/2024 HISTORY: Patient is a 43 year old female and is seen for screening. FILMS COMPARED: The present examination has been compared to prior imaging studies performed at [facility] on 11/10/2021, and at [facility] on 12/25/2021 and 02/14/2023. MAMMOGRAM FINDINGS: were obtained. The breast tissue is extremely dense. This may lower the sensitivity of mammography. There are no suspicious masses, calcifications or other abnormalities. Digital breast tomosynthesis was performed and reviewed as a part of this examination. Procedure Note Suze Wilkins MD - 02/16/2024 EXAM: Bilateral Digital Screening Mammogram With Tomosynthesis - 02/16/2024 HISTORY: Patient is a 43 year old female and is seen for screening. FILMS COMPARED: The present examination has been compared to prior imaging studies performed at [facility] on 11/10/2021, and at [facility] on 12/25/2021 and 02/14/2023. MAMMOGRAM FINDINGS: were obtained. The breast tissue is extremely dense. This may lower the sensitivity of mammography. There are no suspicious masses, calcifications or other abnormalities. Digital breast tomosynthesis was performed and reviewed as a part ofthis examination. IMPRESSION: There is no mammographic evidence of malignancy. A return to screening mammogram in 1 year is recommended. BI-RADS Category 1: Negative us Self Screening Mammogram IMG MAMMO PROCEDURES Fi nal Result from Last 3 Months or Most Recently Relevant to Health Maintenance Insurance [facility] ANTHEM ACCESS CHOICE ANTHEM ACCESS CHOICE [place] [address] Care Teams Engineering Officer Relationship Specialty Start Date End Date Ernesto Lawrence DO [address] [place] [address] PCP - General 12/16/21 Ana Baires MD Consulting Physician Endocrinology 08/15/19 Andriy Higginbotham MD [address] [id number] Consulting Physician Endocrinology Diabetes & Metabolism 10/30/20 Nicolle Schmidt NP [address] [id number] Nurse Practitioner Nurse Practitioner 10/30/20 Peng Sandoval PA Internal Medicine 10/11/23 [place] [address] [place] [address] Consulting Physician Obstetrics and Gynecology 06/18/24
--- OUTSIDE RECORDS SUMMARY | 2025-02-24 22:27 | XMS_ITS | Referral Summary ---
Author Organization [facility] Address [address] [place] [address] Care Team Providers Care Lower School Music Teacher Name Role Phone Ana Baires MD Unavailable [phone] Andriy Higginbotham MD Unavailable Nicolle Schmidt SMALL BRAKE FORM OPERATOR Unavailable Ernesto Lawrence DO Primary Care Provider [phone] Peng Sandoval Unavailable Unavailabl e Pippa Funes MD Unavailable [phone] Encounters Date Type Department Care Team Description 01/22/2025 Orders Only [facility] [address] [phone] Pippa Funes MD Vaginal discharge (Primary Dx) 01/18/2025 Results Follow-Up [facility] [address] [address] [place] [phone] Amy Garcia NP 01/17/2025 7:16 PM COATING AND EMBOSSING UNIT OPERATOR - 01/17/2025 11:59 PM COATING AND EMBOSSING UNIT OPERATOR Hospital Encounter [place] [address] [place] [address] Vaginal discharge Discharge Disposition: Discharge to home or self care 01/17/2025 8:55 AM COATING AND EMBOSSING UNIT OPERATOR Office Visit [facility] [address] [address] [phone] Amy Garcia NP Vaginal discharge (Primary Dx); Pelvic and perineal pain 01/16/2025 Telephone [facility] [address] [facility] [place] [address] Pippa Funes MD Vaginitis/Bacterial Vaginosis from Last 3 Months Allergies Active Allergy Reactions Criticality Noted Date [...] (ADVIL,MOTRIN) 800 mg tablet 3 Active vit 21-mkon-jyckj-d matthews 27mg iron- 800 mcg-250 mg capsule [...] 05/29/2019 Assessment & Plan (10/31/2020 11:08 AM COATING AND EMBOSSING UNIT OPERATOR): TFT's WNL and stable x 1 year, [...] ovary 09/25/2014 Cyst of fallopian tube 05/28/2014 Social History Tobacco Use Types Packs/Day Years [...] on file Legal Sex Female 9:53 AM COATING AND EMBOSSING UNIT OPERATOR Gender Identity Not on file Sexual Orientation Not on file Last Filed Vital Signs Vital Sign Reading Time Taken Comments Blood Pressure 125/71 01/17/2025 9:05 AM COATING AND EMBOSSING UNIT OPERATOR Pulse 78 03/08/2024 11:09 AM CDT Temperature 36.4 C (97.6 F) 03/08/2024 11:09 AM CDT Respiratory Rate 18 03/08/2024 11:09 AM CDT Oxygen Saturation 97% 03/08/2024 11:09 AM CDT Inhaled Oxygen Concentration - - Weight 59.4 kg (131 lb) 01/17/2025 9:05 AM COATING AND EMBOSSING UNIT OPERATOR Height 160 cm (5' 3 ) 01/17/2025 9:05 AM COATING AND EMBOSSING UNIT OPERATOR Body Mass Index 23.21 01/17/2025 9:05 AM COATING AND EMBOSSING UNIT OPERATOR Plan of Treatment Not on file Procedures Procedure Name Priority Date/Time Associated Diagnosis Comments VAGINITIS PANEL Routine 01/17/2025 12:00 PM COATING AND EMBOSSING UNIT OPERATOR Vaginal discharge THINPREP IMAGING PAP AND HPV [...] (ABNORMAL) Vaginitis panel Vaginal (01/17/2025 12:00 PM COATING AND EMBOSSING UNIT OPERATOR) Cristy DNA probe Not Detected Not Detected Gardnerella DNA probe Detected(A) Not Detected [facility] Trichomonas DNA probe Not Detected Not Detected [facility] Comment: Interpretive Data Testing performed by [facility] via Affirm VPIII Microbial Identification Test, a [...] on 2020. Vaginal 01/17/2025 12:0 0 PM COATING AND EMBOSSING UNIT OPERATOR 01/17/2025 8:42 PM COATING AND EMBOSSING UNIT OPERATOR us Amy Garcia NP LAB MICROBIOLOGY - GENERAL OR DERABLES Final Result [facility] [address] Department [place] [address] * ThinPrep(R) Imaging Pap and HPV mRNA E6/E7 Reflex HPV 16,18/45 (06/18/2024 1:23 PM CDT) CLINICAL INFORMATION: [facility] Comment:43YO WWE LMP [facility] Comment:NONE GIVEN Previous Pap [facility] Comment:NONE GIVEN Prev. Bx [facility] Comment:NONE GIVEN SOURCE: [facility] Comment:None given Pap, specimen adequacy [facility] Comment: Satisfactory for evaluation. Endocervical/transformation zone component present. Age and/or menstrual status not provided HPV interp [facility] Comment: Cytology Results: Negative for intraepithelial lesion or malignancy. COMMENTS [facility] Comment: This Pap test has been evaluated with computer assisted technology. Gallery Assistant [facility] Comment: TMK, CT(ASCP) CT screening location: [place] [address] [place] [address] Comment [facility] Comment: EXPLANATORY NOTE: The Pap is a [...] High Risk E6/E7 Not Detected Not Detected [facility] [employer] [facility] Comment: Methodology: Heavy Equipment Technician-Mediated Amplification This assay detects E6/E7 viral messenger RNA (mRNA) from 14 high-risk HPV types (16,18,31,33,35,39,45,51,52,56,58,59,66,68). Cervical sources are required for HPV testing. If a vaginal source from a patient who has had a total hysterectomy with removal of cervix was submitted, please contact the testing laboratory for alternative testing options. For additional information, please refer to http://education.[employer]/faq/RRT012z4 (This link if provided for information/ educational purposes only.) Swab (Cervical) 06/18/2024 1 :23 PM CDT 06/19/2024 2:06 AM CDT Pippa Funes MD LAB CYTOLOGY ORDERABLES F inal Result [facility] [address] [place] [address] [facility] [address] [place] [address] * Screening Mammogram Bilateral W Ilia (02/16/2024 [...] compared to prior imaging studies performed at [facility] on 11/10/2021, and at [facility] on 12/25/2021 and 02/14/2023. MAMMOGRAM FINDINGS: were [...] compared to prior imaging studies performed at [facility] on 11/10/2021, and at [facility] on 12/25/2021 and 02/14/2023. MAMMOGRAM FINDINGS: were [...] Most Recently Relevant to Health Maintenance Insurance [facility] [employer] [place] [address] [place] [address] [facility] [place] [address] Care Teams Lower School Music Teacher Relationship Specialty Start Date End Date Ernesto Lawrence DO [address] [place] [address] PCP - General 12/16/21 Ana Baires MD Consulting Physician Endocrinology 08/15/19 Andriy Higginbotham MD [address] [address] Consulting Physician Endocrinology Diabetes & Metabolism 10/30/20 Nicolle Schmidt NP [address] [address] Nurse Practitioner Nurse Practitioner 10/30/20 Peng Sandoval PA Internal Medicine 10/11/23 [place] [address] [place] [address] Consulting Physician Obstetrics and Gynecology 06/18/24
--- OUTSIDE RECORDS SUMMARY | 2025-02-24 22:27 | XMS_ITS | Encounter Summary ---
Author Organization [facility] Address [address] [place] [address] Phone Care Team Providers Care Newspaper Peddler Name Role Phone Ernesto Lawrence DO Primary Care Provider [phone] Courtney Francois DO Primary Care Provider + Courtney Francois DO Primary Care Provider + Ana Baires MD Unavailable + [phone] Andriy Higginbotham MD Unavailable [phone] Nicolle Schmidt NP Unavailable [phone] Courtney Francois DO Primary Care Provider + Ernesto Lawrence DO Primary Care Provider + [phone] Elicia Rogers MD Unavailable [phone] Peng Sandoval Unavailable Unavailabl e Pippa Funes MD Unavailable [phone] Encounter Details Date Type Department Care Team (Latest Contact Info) Description 06/29/2016 Orders Only [facility] Scanning, Provider Social History Tobacco Use Types Packs/Day Years Used Date Smoking Tobacco: Never Assessed Comments Unknown Sex and Gender Information Value Date Recorded Sex Assigned at Not on file 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 Gender Identity Not on file Sexual Orientation Not on file documented as of this encounter Plan of Treatment Not on file documented as of this encounter Procedures Procedure Name Priority Date/Time Associated Diagnosis Comments SCAN - LABS 06/29/2016 documented in this encounter Results * SCAN - LABS (06/29/2016) us Provider Scanning Final Result documented in this encounter Visit Diagnoses Not on filedocumented in this encounter Additional Health Concerns Infection Onset Date Last Indicated Resolved Time COVID: Suspected 12/02/2022 12/02/2022 12/02/2022 8:24 AM THIRD RIGGER COVID: Suspected 09/03/2023 09/03/2023 09/03/2023 7:04 PM CDT COVID: Suspected 09/03/2023 09/03/2023 09/04/2023 12:32 AM CDT documented as of this encounter Care Teams Newspaper Peddler Relationship Specialty Start Date End Date Ernesto Lawrence DO [address] [address] PCP - General 01/11/17 05/28/19 Courtney Francois DO [address] [place] [address] PCP - General Family Medicine 05/29/19 05/29/19 Courtney Francois DO [address] [place] [address] PCP - General Family Medicine 05/30/19 10/29/20 Courtney Francois DO [address] [place] [address] PCP - General Family Medicine 10/30/20 12/15/21 Ernesto Lawrence DO [address] [address] PCP - General 12/16/21 Ana Baires MD [facility] [place] [address] Consulting Physician Endocrinology 08/15/19 Andriy Higginbotham MD [address] [address] Consulting Physician Endocrinology Diabetes & Metabolism 10/30/20 Nicolle Schmidt NP [address] [address] Nurse Practitioner Nurse Practitioner 10/30/20 [place] [address] [place] [address] Consulting Physician Obstetrics and Gynecology 10/12/22 06/17/24 Peng Sandoval, PA Internal Medicine 10/11/23 [place] [address] [place] [address] Consulting Physician Obstetrics and Gynecology 06/18/24 documented as of this encounter
--- OUTSIDE RECORDS SUMMARY | 2025-02-24 22:27 | XMS_ITS | Encounter Summary ---
Author Organization [facility] Address [address] [place] [address] Care Team Providers Care Radio Technician Name Role Phone Ana Baires MD Unavailable [phone] Andriy Higginbotham MD Unavailable [phone] Nicolle Schmidt NP Unavailable Ernesto Lawrence DO Primary Care Provider Peng Sandoval Unavailable Unavailabl e Pippa Funes MD Unavailable [phone] Encounter Details Date Type Department Care Team (Late st Contact Info) Description 01/18/2025 Results Follow-Up [facility] [address] [address] Amy Garcia 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 OPERATOR [address] [place] [address] Social History Tobacco Use Types Packs/Day Years Used Date Smoking Tobacco: Former Cigarettes Q uit: 2008 Passive Smoke Exposure: Never Smokeless Tobacco: Never Alcohol Use Standard Drinks/Week Comments Not Currently [...] on file 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 Gender Identity Not on file Sexual Orientation Not on file documented as of this encounter Plan of Treatment Not on file documented as of this encounter Visit Diagnoses Not on filedocumented in this encounter Care Teams Radio Technician Relationship Specialty Start Date End Date Ernesto Lawrence DO [address] [place] [address] PCP - General 12/16/21 Ana Baires MD Consulting Physician Endocrinology 08/15/19 Andriy Higginbotham MD [address] [address] Consulting Physician Endocrinology Diabetes & Metabolism 10/30/20 Nicolle Schmidt NP [address] [address] Nurse Practitioner Nurse Practitioner 10/30/20 Peng Sandoval PA Internal Medicine 10/11/23 [place] [address] [place] [address] Consulting Physician Obstetrics and Gynecology 06/18/24 documented as of this encounter
--- OUTSIDE RECORDS SUMMARY | 2025-02-24 22:27 | XMS_ITS | Encounter Summary ---
Author Organization [facility] Address [address] [place] [address] Phone Care Team Providers Care Gate Watchman Name Role Phone Ana Baires MD Unavailable [phone] Andriy Higginbotham MD Unavailable [phone] Nicolle Schmidt NP Unavailable Ernesto Lawrence DO Primary Care Provider [phone] Elicia Rogers MD Unavailable Peng Sandoval Unavailable Unavailabl e Pippa Funes MD Unavailable Encounter Details Date Type Department Care Team (Latest Contact Info) Description 12/28/2022 Orders Only [facility] Scanning, Provider Social History Tobacco Use Types Packs/Day Years Used Date Smoking Tobacco: Former Cigarettes Q uit: 2008 Smokeless Tobacco: Never Alcohol Use Standard Drinks/Week Comments Not Currently 0 (1 standard drink = 0.6 oz pur e alcohol) PHQ-2 Answer Date Recorded PHQ-2 Score 0 07/11/2019 Comments No Sex and Gender Information Value Date Recorded Sex Assigned at Not on file 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 Gender Identity Not on file Sexual Orientation Not on file documented as of this encounter Plan of Treatment Not on file documented as of this encounter Procedures Procedure Name Priority Date/Time Associated Diagnosis Comments SCAN - LABS 12/28/2022 documented in this encounter Results * SCAN - LABS (12/28/2022) us Provider Scanning Final Result documented in this encounter Visit Diagnoses Not on filedocumented in this encounter Additional Health Concerns Infection Onset Date Last Indicated Resolved Time COVID: Suspected 09/03/2023 09/03/2023 09/03/2023 7:04 PM CDT COVID: Suspected 09/03/2023 09/03/2023 09/04/2023 12:32 AM CDT documented as of this encounter Care Teams Gate Watchman Relationship Specialty Start Date End Date Ernesto Lawrence DO [address] [place] [address] PCP - General 12/16/21 Ana Baires MD Consulting Physician Endocrinology 08/15/19 Andriy Higginbotham MD [address] [address] Consulting Physician Endocrinology Diabetes & Metabolism 10/30/20 Nicolle Schmidt NP [address] [address] Nurse Practitioner Nurse Practitioner 10/30/20 Elicia Rogers MD [address] [place] [address] Consulting Physician Obstetrics and Gynecology 10/12/22 06/17/24 Peng Sandoval PA Internal Medicine 10/11/23 Pippa Funes MD [address] [place] [address] Consulting Physician Obstetrics and Gynecology 06/18/24 documented as of this encounter
--- OUTSIDE RECORDS SUMMARY | 2025-02-24 22:27 | XMS_ITS | Clinical Summary ---
Author Organization [facility] Address [address] [place] [address] Care Team Providers Care Gold Tooler Name Role Phone PriscilaCourtney Primary Care Provider [phone] Source Comments [facility],non-owned Affiliates and Associated Physician Practices is amultiple site organization consisting of ambulatory clinics and hospital sitesin [place], [place], [place] and [place]. This disclosure is being madepursuant to the Care Everywhere program and may not contain all information available regarding this patient. Last updated 18.[facility] Allergies No known active allergies Medications * Be aware that medications may not be up to date on this document. Alwaysverify current medications with the patient. Medication Sig Dispensed Refills Start Date End Date Status AZELASTINE HCL NA Active Cetirizine HCl (ZYRTEC PO) Active Multiple Vitamin (MULTI-VITAMIN DAILY PO) Active Active Problems Problem Noted Date Diagnosed Date Papanicolaou smear for cervical cancer screening 02/05/2011 Overview (02/22/2012): 02/05/2011 wnl, 02/22/2012 Seasonal allergies Chronic sinusitis Family History Medical History Relation Name Comments Alzheimer's Disease Father Hypertension Mother Relation Name Status Comments Father Alive Mother Alive Social History Tobacco Use Types Packs/Day Years Used Date Smoking Tobacco: Never Smokeless Tobacco: Never Alcohol Use Standard Drinks/Week Comments Yes 0.8 (1 standard drink = 0.6 oz p ure alcohol) Sex and Gender Information Value Date Recorded Sex Assigned at Not on file Gender Identity Not on file Sexual Orientation Not on file Last Filed Vital Signs Vital Sign Reading Time Taken Comments Blood Pressure 108/68 07/09/2020 10:42 AM CDT Pulse 75 07/09/2020 10:42 AM CDT Temperature 37.1 C (98.7 F) 07/09/2020 10:42 AM CDT Respiratory Rate 16 07/09/2020 10:42 AM CDT Oxygen Saturation 97% 07/09/2020 10:42 AM CDT Inhaled Oxygen Concentration - - Weight 59 kg (130 lb) 07/09/2020 10:42 AM CDT Height 157.5 cm (5' 2 ) 07/09/2020 10:42 AM CDT Body Mass Index 23.78 07/09/2020 10:42 AM CDT Plan of Treatment Health Maintenance Due Date Last Done Comments COLOGUARD (AGES 45-75) - COL ON CA SCREENING 1979 COLON MONITORING 1979 COLONOSCOPY - COLON CA SCREENING 1979 CT COLONOGRAPHY - COLON CA SCREENING 1979 Colorectal Cancer Screening 1979 FIT - COLON CA SCREENING 1979 FLEX SIG - COLON CA SCREENING 1979 LIPID TESTING 1979 MAMMOGRAM 1979 HIV SCREENING 1994 HEPATITIS C SCREENING 09/13/1997 DTAP/TDAP/TD VACCINES (1 - Tdap) 1998 HEPATITIS B VACCINE (1 of 3 - 19+ 3-dose series) 1998 PAP SMEAR 02/21/2015 02/22/2012, 02/05/2011 COVID-19 VACCINE (4 - 2023-2 5 season) 2024 07/18/2021, 07/07/2021, 06/14/2021 DEPRESSION SCREENING 11/21/2024 INFLUENZA VACCINE (Season Ended) 2025 11/10/2019 ZOSTER VACCINE (1 of 2) 2029 HIB VACCINE Aged Out No longer eligi ble based on patient's age to complete this topic HPV VACCINE Aged Out No longer eligi ble based on patient's age to complete this topic MENINGOCOCCAL (Group B) VACCINE SHARED DECISION-MAKING Aged Out No longer eligible based on patient's age to complete this topic MENINGOCOCCAL GROUPS A/C/Y/W VACCINE Aged Out No longer eligible b ased on patient's age to complete this topic PNEUMOCOCCAL VACCINE Aged Out No long er eligible based on patient's age to complete this topic Procedures Procedure Name Priority Date/Time Associated Diagnosis Comments PAP THINPREP REFLX HPV MRNA E6/E7 Routine 02/22/2012 11:12 AM CDT Routine gynecological examination from Last 3 Months or Most Recently Relevant to Health Maintenance Results * PAP THIN PREP REFLX HPV (PO REF LAB) (02/22/2012 11:12 AM CDT) Clinical Information [facility] Comment:Routine exam Ultrasound Date [facility] Comment:Information not prov ided Previous Pap [facility] Comment:Information not prov ided Prev. BX [facility] Comment:Information not prov ided Source [facility] Comment:Information not prov ided Statement of Adequacy [facility] Comment: Satisfactory for evaluation. Endocervical/transformation zone component present. Age and/or menstrual status not provided Interpretation/Resul t [facility] Comment:Negative for intraep ithelial lesion or malignancy. Comment [facility] Comment: This Pap test has been evaluated with computer assisted technology. Based on the cytology result, reflex High Risk HPV DNA testing was not performed. Siding Coreboard Inspector [facility] Comment: MVB, CT(ASCP) Test Performed at: [facility] [address] [place] [id number] ALEKS RENEE DO MICROSCOPIC CYTOLOGIC EXAMINATION OF SMEAR OF SPECIMEN FROM FEMALE GENITAL TRACT PREPARED USING PAPANICOLAOU TECHNIQUE / Unknown 02/22/2012 11:12 AM CDT 02/22/2012 11:11 PM CDT Calros Lemus MD LAB - PATHOLOGY/CYT OLOGY ORDERABLES [facility] [address] [place] [address] from Last 3 Months or Most Recently Relevant to Health Maintenance Care Teams Gold Tooler Relationship Specialty Start Date End Date Courtney Francois DO [address] [place] [id number] PCP - General Family Medicine 03/15/18
--- NOTE | 2025-02-24 22:44 | ED_ITS ---
HPI - Recheck/Abnormal Lab/Rx General Chief Complaint: Recheck/Abnormal Lab/Rx Stated Complaint: does not feel well, shaking, muscle cramps Time Seen by Provider: 02/24/25 22:36 Source: patient Mode of arrival: ambulatory Limitations: no limitations History of Present Illness HPI narrative: Patient presents with report of feeling of shakiness and muscle cramps, particularly in her legs and knees. States she doesn't feel well, with an upset stomach (states it is not nausea though) and headache and feeling like her limbs are cold. She started taking multiple vitamins/supplement Rusty. She had been taking only 1 per day for 3-4 days but then increased this to 2 and a as per the instructions on the package. She then started experiencing the symptoms. She is concerned that her electrolytes have been affected and are abnormal. She states she has had hypokalemia before (when she had C difficile) and just had her labs drawn Tuesday after seeing her functional medicine doctor. She had noted that she was having palpitations at that time and continues to have palpitations today. She states that she is hesitant to call them palpitations although she felt like her heart was beating fast.. She states that her primary care provider had wanted her to get an EKG but she had refused that at the time because she didn't want to pay for another expense. She notes that every time she sees her primary care provider she has to pay 120 dollars. She is that she is sensitive to many medications given her autoimmune disorder of Christina's thyroid. She notes that although she has not followed up with her primary care provider yet regarding her labs, her potassium was normal that was on the low side and she is concerned for this. She has read about side effects of various vitamins and minerals and is concerned that they were interacting her electrolytes. She had been taking a vitamin but became concerned about the component of folic acid verses folate. States she has done a lot of research and knows her body and that something is wrong. Denies recreational drug use. She had also had a change in her medicines lately with taking dessicated thyroid medicine. Notes she is very sensitive to medicines. DId not realize the large percentage is a some of the components of her supplement. Related Data Home Medications ?Medication ?Instructions ?Recorded ?Confirmed ?Last Taken ?Type azelastine 137 mcg (0.1 %) nasal 2 spray intranasal QHS 10/15/23 10/15/23 1 Day Ago History spray ~09/03/23 cetirizine 10 mg tablet (Zyrtec) 10 mg PO QAM 09/04/23 09/04/23 1 Day Ago History ~09/03/23 vitamin-ferrous fumarate 1 tablet PO QHS 09/04/23 09/04/23 1 Day Ago History 40 mg iron-folic acid 1 mg tablet ~09/03/23 Allergies Allergy/AdvReac Type Severity Reaction Status Date / Time almond Allergy Unknown Verified 02/24/25 22:36 [facility] Past Medical History Medical History History of Clostridioides difficile infection Christina thyroiditis Hyperthyroidism Surgical History Surgical History History of appendectomy Family History Family History Grandparent Hypertension Mother Hypertension Father Family history of Alzheimer's disease Social History Social History Smoking status: Former smoker Tobacco type: cigarettes Second hand tobacco smoke exposure: No Alcohol intake: former Drinks per week: 2 Substance use: never Substance use type: does not use Lack of Transportation: No Lack of Food: Never True Current Housing: I Have Housing Concerned About Future Housing: No Difficulty Paying Gas/Electric Bills: No Difficulty Paying for Meds: No Currently Unemployed: No Education: Master's Degree or Higher Difficulty w/ Childcare or Family Care: No Living arrangements: with family Additional living arrangements comments: and daughter Occupation/Education: occupation Spiritual care concerns: No Agree to blood products: Yes Exam 2 Narrative: GENERAL: Well-appearing, well-nourished, and in no acute distress. HEAD: Normocephalic, atraumatic. EYES: Non injected, non icteric ENT: Nares clear, no rhinorrhea or epistaxis. NECK: Supple. CHEST: Speaking in full sentences. No respiratory distress. HEART: Regular rate and rhythm. . ABDOMEN: Soft, nondistended. EXTREMITIES: Normal range of motion. No lower extremity edema. SKIN: Warm, dry, no rash. NEURO: No focal deficits. Alert and oriented x3. Not tremulous. No abnormal movements appreciated. Speaks clearly without aphasia or dysarthria. PSYCH: Congruent mood and affect. She does appear anxious but not tearful. She is calm good eye contact. She speaks in an appropriate volume but quite fast- paced. Course Vital Signs Vital signs: Vital Signs Temperature 97.7 F 02/24/25 22:26 Pulse Rate 76 02/24/25 22:26 Respiratory Rate 14 02/24/25 22:26 Blood Pressure 129/72 02/24/25 22:26 Pulse Oximetry 100 02/24/25 22:26 Oxygen Delivery Room Air 02/24/25 22:26 Temperature 97.7 F 02/24/25 22:26 Pulse Rate 76 02/24/25 22:26 Respiratory Rate 14 02/24/25 22:26 Blood Pressure 129/72 02/24/25 22:26 Pulse Oximetry 100 02/24/25 22:26 Oxygen Delivery Room Air 02/24/25 22:26 MDM - Recheck/Abnormal Lab/Rx MDM Narrative Medical decision making narrative: Patient presents with complaint of feeling shaky and with muscle cramps as well as a headache, upset stomach, and palpitations. In the emergency department they are afebrile with vital signs within normal limits. Recently started taking a supplement once daily and then within the last 1-2 days increase this to twice daily as recommended on the bottle. Bottle of Andre Phillipe Basic Nutrients 2/Day is reviewed which contains (component and % daily value): Vitamin A 117% Vitamin-C as ascorbic acid 278% Vitamin D as vitamin D3 250 % Vitamin E 110% Vitamin K 133% Thiamin 4167% Riboflavin 923% Niacin 500% Vitamin B6 1176% Folate 167% Vitamin B12 25,000 % Biotin 1667% Pantothenic acid 900 % Calcium 4% Iodine 50% Magnesium 5% Zinc 136% Selenium 364% Copper 83% Manganese 130% Chromium 1143%. Also contain boron Patient does has an MANUEL given her creatinine is normally 0.4 -0.6 per review of the EMR. 1 L IV fluids ordered in addition to Zofran for her nausea. CPK is mildly elevated but not to a degree to suggest rhabdomyolysis. I hadinitially ordered an EKG and chest x-ray given patient has complaint of palpitations however she is refusing/declining them. Additional labs had also been ordered to obtain levels of the various components of the supplement she has been taking, acknowledging that many of them are send out labs but could be followed up by her primary care provider. She vascilates on what to do. Patient is refusing to receive the ondansetron. She continues to say that her stomach is upset but she is not nauseated and does not want any medicine. She had 1st refused the IV fluids. I discussed the fact that she has a mild acute kidney injury and that given her age and general well health, she would likely be just fine to take fluids p.o. and follow-up with her primary care physician regarding this. Patient is very anxious. She states she she will not be able to drink water overnight because she will be sleeping and she is nervous because her has a business trip and she will be watching daughter all week and she is concerned if she does not address this now, she might end up back here. She would like to proceed with IV hydration. Patient discharged after this without obtaining the wide array of labs initially ordered only because she was concerned about the percentages of many of them. Differential Diagnosis Differential diagnosis: Likely other (Electrolyte abnormalities, accidental overdose on vitamin/minerals, rhabdomyolysis; arrhythmia (atrial fibrillation, atrial flutter, SVT, Tprby-Etfzyfxne-Qswaq) psychogenic) Lab Data Attestation: I reviewed the patient's lab results. Lab results narrative: Normal urinalysis 02/24/25 22:59 02/24/25 22:59 Labs: Lab Results 02/24/25 02/25/25 Range/Units 22:59 00:45 WBC 5.7 (4.5-10.0) K/mm3 RBC 4.25 (4.2-5.4) M/mm3 Hgb 12.8 (12.0-15.0) g/dL Hct 39.4 (37.0-47.0) % MCV 92.7 (80-100) fl MCH 30.1 (26-34) pg MCHC 32.5 (32-36) g/dl RDW 12.0 (11.5-14.5) % Plt Count 189 D (150-375) k/mm3 MPV 10.7 H (7.4-10.4) fl Immature Gran % (Auto) 0.0 (0-0.5) % Neut % (Auto) 47.4 (45.5-73.1) % Lymph % (Auto) 43.5 (18.3-44.2) % [place] % (Auto) 6.6 (2.6-8.5) % Eos % (Auto) 1.6 (0-4.4) % Baso % (Auto) 0.9 (0.2-1.2) % Lymph # (Auto) 2.49 (0.9-3.2) K/mm3 [place] # (Auto) 0.4 (0.1-0.6) K/mm3 Eos # (Auto) 0.1 (0-0.3) K/mm3 Baso # (Auto) 0.1 (0.0-0.1) K/mm3 Abs Immat Gran (auto) 0.00 (0.00-0.031) K/mm3 Absolute Neuts (auto) 2.7 (1.3-6.7) K/mm3 Absolute Nucleated RBC 0.000 (0.0-0.012) K/mm3 Nucleated RBC % 0.0 (0.0-0.2) % Sodium 137 (137-145) mmol/L Potassium 3.6 (3.4-5.0) mmol/L Chloride 102 (98-107) mmol/L Carbon Dioxide 24 (22-30) mmol/L Anion Gap 11 (4-12) mmol/L BUN 22 H D (7-17) mg/dL Creatinine 1.02 H (0.7-1.0) mg/dL Estim Creat Clear Calc 49 ml/min Estimated GFR 59 (59 - ) Glucose 116 H (65-110) mg/dL Calcium 9.4 (8.4-10.2) mg/dL Magnesium 2.0 (1.6-2.3) mg/dL Total Bilirubin 0.3 (0.2-1.3) mg/dL AST 30 (14-36) U/L ALT 26 (6-35) U/L Alkaline Phosphatase 122 (38-126) U/L Total Creatine Kinase 168 H (30-135) U/L Total Protein 8.0 (6.3-8.2) g/dL Albumin 4.9 (3.5-5.1) g/dL Urine Color Yellow (Yellow) Urine Appearance Clear (Clear) Urine pH 6.5 (5.0-9.0) Ur Specific [place] 1.004 (1.001-1.035) Urine Protein Negative (Negative) mg/dL Urine Glucose (UA) Negative (Negative) mg/dL Urine Ketones Negative (Negative) mg/dL Ur Blood (Man) Negative (Negative) Urine Nitrate Negative (Negative) Urine Bilirubin Negative (Negative) Urine Urobilinogen 0.2 (<2.0) mg/dL Leukocyte Esterase Rfl Negative (Negative) VERNON/UL Discharge Plan Discharge Clinical Impression: MANUEL (acute kidney injury), Palpitations, Upset stomach, Muscle cramps Patient Disposition: Home Condition: Stable Instructions: Antibiotic Form, Heart Palpitations (ED), Acute Kidney Injury (DC), Muscle Cramp (ED) Additional Instructions: As we discussed, it is possible at your side effects are due to the supplement you are taking. You had a slight acute kidney injury and received 1L IV fluids. Continue to maintain your hydration and also follow up with your functional medicine provider. If you do not have a primary care doctor, the name of 1 is listed below. Return to the emergency department any new or worsening symptoms. Your calcium, potassium, and magnesium were normal. Your CPK was slightly elevated but not to a degree to suggest marked muscle breakdown. Patient Language: Faroese Prescriptions: No Action cetirizine [Zyrtec] 10 mg Tablet 10 mg PO QAM (w/o vit A)-Fe fum-FA 40 mg iron-1 mg Tablet 1 tablet PO QHS azelastine 137 mcg (0.1 %) aerosol,spray 2 spray INTRANASAL QHS Rx Instructions: 2 sprays each nostril fidaxomicin 200 mg tablet 200 mg PO Q12H Qty: 18 0RF Follow-up/Referrals: Valente Thomas MD [Physician] - PHYSICIAN NOT ON STAFF,NONSTAFF [Primary Care Provider] - Stand Alone Forms: Work/School Release IP Time of Disposition: 01:05
[2025-02-24 23:05] LABS: Basophils Absolute Auto 0.1 K/mm3 (0.0-0.1); Basophils Percent Auto 0.9 % (0.2-1.2); Eosinophils Absolute Auto 0.1 K/mm3 (0-0.3); Eosinophils Percent Auto 1.6 % (0-4.4); Hematocrit 39.4 % (37.0-47.0); Hemoglobin 12.8 g/dL (12.0-15.0); Lymphocytes Absolute Auto 2.49 K/mm3 (0.9-3.2); Lymphocytes Percent Auto 43.5 % (18.3-44.2); Mean Corpuscular HGB Conc 32.5 g/dl (32-36); Mean Corpuscular Hemoglobin 30.1 pg (26-34); Mean Corpuscular Volume 92.7 fl (80-100); Mean Platelet Volume 10.7 fl (7.4-10.4); Monocytes Absolute Auto 0.4 K/mm3 (0.1-0.6); Monocytes Percent Auto 6.6 % (2.6-8.5); Neutrophils Absolute Auto 2.7 K/mm3 (1.3-6.7); Neutrophils Percent Auto 47.4 % (45.5-73.1); Platelet Count Result 189 k/mm3 (150-375); Red Blood Count 4.25 M/mm3 (4.2-5.4); White Blood Count 5.7 K/mm3 (4.5-10.0)
[2025-02-24 23:22] LABS: Alanine Aminotransferase 26 U/L (6-35); Albumin Level 4.9 g/dL (3.5-5.1); Alkaline Phosphatase 122 U/L (38-126); Anion Gap 11 mmol/L (4-12); Aspartate Amino Transferase 30 U/L (14-36); Bilirubin,Total 0.3 mg/dL (0.2-1.3); Blood Urea Nitrogen 22 mg/dL (7-17); Calcium 9.4 mg/dL (8.4-10.2); Carbon Dioxide 24 mmol/L (22-30); Chloride 102 mmol/L (98-107); Creatine Kinase 168 U/L (30-135); Estimated CRCL calculation 49 ml/min; Estimated Glomerular Filt Rate 59; Glucose 116 mg/dL (65-110); Potassium 3.6 mmol/L (3.4-5.0); Sodium 137 mmol/L (137-145)
[2025-02-25] MEDS: SODIUM CHLORIDE 0.9% IV 1,000 ML 999 ML IV CONT (00:53)
[2025-02-25 00:58] LABS: Add Urine Microscopic? NO; Appearance Urine Clear (Clear); Bilirubin Urine Negative (Negative); Blood Urine Negative (Negative); Color Urine Yellow (Yellow); Glucose Urine UA Negative (Negative); Ketones Urine Negative (Negative); Leukocyte Esterase Ur Negative LEU/UL (Negative); Nitrate Urine Negative (Negative); Protein Urine Negative (Negative); Specific Grav Ur 1.004 (1.001-1.035); Urobilinogen Urine 0.2 mg/dL (<2.0); pH Urine 6.5 (5.0-9.0)
== END 2025-02-25 02:14 | disposition home or self-care (01) ==
PROVIDERS: Emergency Provider Student in an Organized Health Care Education/Training Program
DX: R25.2 Cramp and spasm (principal); R00.2 Palpitations; E06.3 Autoimmune thyroiditis; Z87.891 Personal history of nicotine dependence; N17.9 Acute kidney failure, unspecified
CPT/HCPCS: 36415; 80053; 81003; 81025; 82550; 83735; 85025; 96360; 99284; J7030

== ENCOUNTER 2025-02-25 09:55 | Emergency (ER) | payer BC, SELFPAY ==
[2025-02-25] VITALS (9 sets, daily range): BP systolic 100–119; BP diastolic 57–80; PULSE 66–80; RESP 16–23; TEMP 36.4; O2SAT 98–100
--- NOTE | 2025-02-25 11:11 | PC.NURSE ---
Patient refused COVID/RSV/FLU swab.
--- OUTSIDE RECORDS SUMMARY | 2025-02-25 11:15 | XMS_ITS | Referral Summary ---
Author Organization [facility] Address [address] [place] [address] Care Team Providers Care Fitness And Wellness Manager Name Role Phone Ana Baires MD Unavailable [phone] Andriy Higginbotham MD Unavailable [phone] Nicolle Schmidt MANAGER ENERGY Unavailable Ernesto Lawrence DO Primary Care Provider Peng Sandoval Unavailable Unavailabl e Pippa Funes MD Unavailable [phone] Encounters Date Type Department Care Team Description 01/22/2025 Orders Only [facility] [address] [place] [phone] Pippa Funes MD Vaginal discharge (Primary Dx) 01/18/2025 Results Follow-Up [facility] [address] [place] [phone] Amy Garcia NP 01/17/2025 7:16 PM CUTTING AND SPLICING SUPERVISOR - 01/17/2025 11:59 PM CUTTING AND SPLICING SUPERVISOR Hospital Encounter [place] [address] [place] [address] Vaginal discharge Discharge Disposition: Discharge to home or self care 01/17/2025 8:55 AM CUTTING AND SPLICING SUPERVISOR Office Visit [facility] [address] [place] [phone] Amy Garcia NP Vaginal discharge (Primary Dx); Pelvic and perineal pain 01/16/2025 Telephone [facility] [address] [facility] [place] [address] Pippa Funes MD Vaginitis/Bacterial [...] (ADVIL,MOTRIN) 800 mg tablet 3 Active vit 47-vcqd-vjlqu-d matthews 27mg iron- 800 mcg-250 mg capsule [...] 05/29/2019 Assessment & Plan (10/31/2020 11:08 AM CUTTING AND SPLICING SUPERVISOR): TFT's WNL and stable x 1 year, [...] on file Legal Sex Female 9:53 AM CUTTING AND SPLICING SUPERVISOR Gender Identity Not on file Sexual Orientation Not on file Last Filed Vital Signs Vital Sign Reading Time Taken Comments Blood Pressure 125/71 01/17/2025 9:05 AM CUTTING AND SPLICING SUPERVISOR Pulse 78 03/08/2024 11:09 AM CDT Temperature 36.4 C (97.6 F) 03/08/2024 11:09 AM CDT Respiratory Rate 18 03/08/2024 11:09 AM CDT Oxygen Saturation 97% 03/08/2024 11:09 AM CDT Inhaled Oxygen Concentration - - Weight 59.4 kg (131 lb) 01/17/2025 9:05 AM CUTTING AND SPLICING SUPERVISOR Height 160 cm (5' 3 ) 01/17/2025 9:05 AM CUTTING AND SPLICING SUPERVISOR Body Mass Index 23.21 01/17/2025 9:05 AM CUTTING AND SPLICING SUPERVISOR Plan of Treatment Not on file Procedures Procedure Name Priority Date/Time Associated Diagnosis Comments VAGINITIS PANEL Routine 01/17/2025 12:00 PM CUTTING AND SPLICING SUPERVISOR Vaginal discharge THINPREP IMAGING PAP AND HPV [...] (ABNORMAL) Vaginitis panel Vaginal (01/17/2025 12:00 PM CUTTING AND SPLICING SUPERVISOR) Cristy DNA probe Not Detected Not Detected Gardnerella DNA probe Detected(A) Not Detected [facility] Trichomonas DNA probe Not Detected Not Detected [facility] Comment: Interpretive Data Testing performed by [facility] via Affirm VPIII Microbial Identification Test, [...] on 2020. Vaginal 01/17/2025 12:0 0 PM CUTTING AND SPLICING SUPERVISOR 01/17/2025 8:42 PM CUTTING AND SPLICING SUPERVISOR us Amy Garcia NP LAB MICROBIOLOGY - GENERAL OR DERABLES Final Result [facility] [address] Department [place] [address] * ThinPrep(R) Imaging Pap and HPV mRNA E6/E7 Reflex HPV 16,18/45 (06/18/2024 1:23 PM CDT) CLINICAL INFORMATION: [facility] Comment:43YO WWE LMP [facility] Comment:NONE GIVEN Previous Pap [facility] Comment:NONE GIVEN Prev. Bx [facility] Comment:NONE GIVEN SOURCE: [facility] Comment:None given Pap, specimen adequacy [facility] Comment: Satisfactory for evaluation. Endocervical/transformation zone component present. Age and/or menstrual status not provided HPV interp [facility] Comment: Cytology Results: Negative for intraepithelial lesion or malignancy. COMMENTS [facility] Comment: This Pap test has been evaluated with computer assisted technology. Hand Painter [facility] Comment: TMK, CT(ASCP) CT screening location: [place] [address] [place] [address] Comment [facility] Comment: EXPLANATORY NOTE: The Pap is [...] High Risk E6/E7 Not Detected Not Detected [facility] Comment: Methodology: Knife Grinder-Mediated Amplification This assay detects E6/E7 viral messenger RNA (mRNA) from 14 high-risk HPV types (16,18,31,33,35,39,45,51,52,56,58,59,66,68). Cervical sources are required for HPV testing. If a vaginal source from a patient who has had a total hysterectomy with removal of cervix was submitted, please contact the testing laboratory for alternative testing options. For additional information, please refer to http://education.[employer] ([employer])/faq/OLN287r9 (This link if provided for information/ educational purposes only.) Swab (Cervical) 06/18/2024 1 :23 PM CDT 06/19/2024 2:06 AM CDT Pippa Funes MD LAB CYTOLOGY ORDERABLES F [facility] [address] [place] [address] [facility] [address] [place] [address] * Screening Mammogram Bilateral W Ilia (02/16/2024 [...] compared to prior imaging studies performed at [facility] on 11/10/2021, and at [facility] on 12/25/2021 and 02/14/2023. MAMMOGRAM FINDINGS: were [...] compared to prior imaging studies performed at [facility] on 11/10/2021, and at [facility] on 12/25/2021 and 02/14/2023. MAMMOGRAM FINDINGS: were [...] Most Recently Relevant to Health Maintenance Insurance [facility] [facility] [employer] [address] [place] [address] [facility] [place] [address] Care Teams Fitness And Wellness Manager Relationship Specialty Start Date End Date Ernesto Lawrence DO [address] [place] [address] PCP - General 12/16/21 Ana Baires MD Consulting Physician Endocrinology 08/15/19 Andriy Higginbotham MD [address] [address] Consulting Physician Endocrinology Diabetes & Metabolism 10/30/20 Nicolle Schmidt NP [address] [address] Nurse Practitioner Nurse Practitioner 10/30/20 Peng Sandoval PA Internal Medicine 10/11/23 [place] [address] [place] [address] Consulting Physician Obstetrics and Gynecology 06/18/24
--- OUTSIDE RECORDS SUMMARY | 2025-02-25 11:15 | XMS_ITS | Encounter Summary ---
Author Organization [facility] Address [address] [place] [address] Care Team Providers Care Crime Scene Investigator Name Role Phone Ana Baires MD Unavailable [phone] Andriy Higginbotham MD Unavailable [phone] Nicolle Schmidt NP Unavailable [phone] Ernesto Lawrence DO Primary Care Provider [phone] Peng Sandoval Unavailable Unavailabl e Pippa Funes MD Unavailable [phone] Encounter Details Date Type Department Care Team (Late st Contact Info) Description 01/18/2025 Results Follow-Up [facility] [address] [place] [phone] Amy Garcia CARD HANGER [address] [facility] [place] [address] Social History Tobacco Use Types [...] on file Legal Sex Female 9:53 AM PODIATRIC TECHNICIAN Gender Identity Not on file Sexual Orientation Not on file documented as of this encounter Plan of Treatment Not on file documented as of this encounter Visit Diagnoses Not on filedocumented in this encounter Care Teams Crime Scene Investigator Relationship Specialty Start Date End Date Ernesto Lawrence DO [address] [place] [address] PCP - General 12/16/21 Ana Baires MD Consulting Physician Endocrinology 08/15/19 Andriy Higginbotham MD [address] [address] Consulting Physician Endocrinology Diabetes & Metabolism 10/30/20 Nicolle Schmidt NP [address] [address] Nurse Practitioner Nurse Practitioner 10/30/20 Peng Sandoval PA Internal Medicine 10/11/23 [place] [address] [place] [address] Consulting Physician Obstetrics and Gynecology 06/18/24 documented as of this encounter
--- OUTSIDE RECORDS SUMMARY | 2025-02-25 11:15 | XMS_ITS | Clinical Summary ---
Author Organization [facility] Address [address] [facility] [place] [address] Care Team Providers Care Grades 9 Thru 12 Visiting Teacher Name Role Phone PriscilaCourtney Primary Care Provider Source Comments [facility],non-owned Affiliates and Associated Physician Practices is amultiple site organization consisting of ambulatory clinics and hospital sitesin [place], [place] and [place]. This disclosure is being madepursuant to the Care Everywhere program and may not contain all information available regarding this patient. Last updated 18.[facility] Allergies No known active allergies Medications * [...] Risk HPV DNA testing was not performed. Tax Intern [facility] Comment: MVB, CT(ASCP) Test Performed at: [facility] [address] [place] [address] ALEKS RENEE DO MICROSCOPIC CYTOLOGIC EXAMINATION OF SMEAR OF SPECIMEN FROM FEMALE GENITAL TRACT PREPARED USING PAPANICOLAOU TECHNIQUE / Unknown 02/22/2012 11:12 AM CDT 02/22/2012 11:11 PM CDT Carlos Lemus MD LAB - PATHOLOGY/CYT OLOGY ORDERABLES [facility] [address] [place] [address] from Last 3 Months or Most Recently Relevant to Health Maintenance Care Teams Grades 9 Thru 12 Visiting Teacher Relationship Specialty Start Date End Date Courtney Francois DO [address] [place] [id number] PCP - General Family Medicine 03/15/18
--- OUTSIDE RECORDS SUMMARY | 2025-02-25 11:15 | XMS_ITS | Clinical Summary ---
Author Organization [facility] Address [address] [place] [address] Care Team Providers Care Power Plant Engineer Name Role Phone Ana Baires MD Unavailable [phone] Andriy Higginbotham MD Unavailable [phone] Nicolle Schmidt SEAFOOD PREPARER Unavailable [phone] Ernesto Lawrence DO Primary Care Provider [phone] Peng Sandoval Unavailable Unavailabl e Pippa Funes MD Unavailable [phone] Allergies Active Allergy Reactions Criticality Noted Date [...] (ADVIL,MOTRIN) 800 mg tablet 3 Active vit 09-cuav-nklnu-d matthews 27mg iron- 800 mcg-250 mg capsule [...] 05/29/2019 Assessment & Plan (10/31/2020 11:08 AM MOTORS AND GENERATORS INSPECTOR): TFT's WNL and stable x 1 year, [...] 01/22/2025 Orders Only [facility] [address] [place] [address] Pippa Funes MD Vaginal discharge (Primary Dx) 01/18/2025 Results Follow-Up [facility] [address] [place] [phone] Amy Garcia NP 01/17/2025 7:16 PM MOTORS AND GENERATORS INSPECTOR - 01/17/2025 11:59 PM MOTORS AND GENERATORS INSPECTOR Hospital Encounter [facility] [address] [place] [phone] Vaginal discharge Discharge Disposition: Discharge to home or self care 01/17/2025 8:55 AM MOTORS AND GENERATORS INSPECTOR Office Visit [facility] [place] [phone] Amy Garcia NP Vaginal discharge (Primary Dx); Pelvic and perineal pain 01/16/2025 Telephone [facility] [place] [phone] Pippa Funes MD Vaginitis/Bacterial Vaginosis from Last 3 Months Surgical History Surgery Date Site/Laterality Comments [place] HYSTEROSCOPY BX ENDOMETRIUM&/POLYPC W/WO D&C Hysteroscopy - [...] on file Legal Sex Female 9:53 AM MOTORS AND GENERATORS INSPECTOR Gender Identity Not on file Sexual Orientation [...] Comments Blood Pressure 125/71 01/17/2025 9:05 AM MOTORS AND GENERATORS INSPECTOR Pulse 78 03/08/2024 11:09 AM CDT Temperature 36.4 C (97.6 F) 03/08/2024 11:09 AM CDT Respiratory Rate 18 03/08/2024 11:09 AM CDT Oxygen Saturation 97% 03/08/2024 11:09 AM CDT Inhaled Oxygen Concentration - - Weight 59.4 kg (131 lb) 01/17/2025 9:05 AM MOTORS AND GENERATORS INSPECTOR Height 160 cm (5' 3 ) 01/17/2025 9:05 AM MOTORS AND GENERATORS INSPECTOR Body Mass Index 23.21 01/17/2025 9:05 AM MOTORS AND GENERATORS INSPECTOR Plan of Treatment Health Maintenance Due Date [...] Comments VAGINITIS PANEL Routine 01/17/2025 12:00 PM MOTORS AND GENERATORS INSPECTOR Vaginal discharge THINPREP IMAGING PAP AND HPV [...] (ABNORMAL) Vaginitis panel Vaginal (01/17/2025 12:00 PM MOTORS AND GENERATORS INSPECTOR) Pathologist [facility] Cristy DNA probe Not Detected Not Detected Gardnerella DNA probe Detected(A) Not Detected [facility] Trichomonas DNA probe Not Detected Not Detected [facility] Comment: Interpretive Data Testing performed by [facility] via Affirm VPIII Microbial Identification Test, a [...] on 2020. Vaginal 01/17/2025 12:0 0 PM MOTORS AND GENERATORS INSPECTOR 01/17/2025 8:42 PM MOTORS AND GENERATORS INSPECTOR us Amy Garcia NP LAB MICROBIOLOGY - GENERAL OR DERABLES Final Result [facility] [address] Department [place] [address] * ThinPrep(R) Imaging Pap and HPV mRNA E6/E7 Reflex HPV 16,18/45 (06/18/2024 1:23 PM CDT) [facility] CLINICAL INFORMATION: [facility] Comment:43YO WWE LMP [facility] Comment:NONE GIVEN Previous Pap [facility] Comment:NONE GIVEN Prev. Bx [facility] Comment:NONE GIVEN SOURCE: [facility] Comment:None given Pap, specimen adequacy [facility] Comment: Satisfactory for evaluation. Endocervical/transformation zone component present. Age and/or menstrual status not provided HPV interp [facility] Comment: Cytology Results: Negative for intraepithelial lesion or malignancy. COMMENTS [facility] Comment: This Pap test has been evaluated with computer assisted technology. Station Cleaning Porter [facility] Comment: TMK, CT(ASCP) CT screening location: [place] [address] [address] [place] [address] Comment [facility] Comment: EXPLANATORY NOTE: The Pap is [...] High Risk E6/E7 Not Detected Not Detected [facility] Comment: Methodology: Mate Relief-Mediated Amplification This assay detects E6/E7 viral messenger RNA (mRNA) from 14 high-risk HPV types (16,18,31,33,35,39,45,51,52,56,58,59,66,68). Cervical sources are required for HPV testing. If a vaginal source from a patient who has had a total hysterectomy with removal of cervix was submitted, please contact the testing laboratory for alternative testing options. For additional information, please refer to http://education.[employer]/faq/QWM585g6 (This link if provided for information/ educational purposes only.) Swab (Cervical) 06/18/2024 1 :23 PM CDT 06/19/2024 2:06 AM CDT Pippa Funes MD LAB CYTOLOGY ORDERABLES F inal Result [place] [address] [place] [address] [facility] [address] [place] [address] * Screening Mammogram Bilateral W Ilia (02/16/2024 [...] compared to prior imaging studies performed at [facility] on 11/10/2021, and at [facility] on 12/25/2021 and 02/14/2023. MAMMOGRAM FINDINGS: [...] compared to prior imaging studies performed at [facility] on 11/10/2021, and at [facility] on 12/25/2021 and 02/14/2023. MAMMOGRAM FINDINGS: [...] Most Recently Relevant to Health Maintenance Insurance [facility] ANTHEM ACCESS CHOICE ANTHEM ACCESS CHOICE [place] [address] Care Teams Power Plant Engineer Relationship Specialty Start Date End Date Ernesto Lawrence DO [address] [place] [address] PCP - General 12/16/21 Ana Baires MD Consulting Physician Endocrinology 08/15/19 Andriy Higginbotham MD [address] [id number] Consulting Physician Endocrinology Diabetes & Metabolism 10/30/20 Nicolle Schmidt NP [address] [id number] Nurse Practitioner Nurse Practitioner 10/30/20 Peng Sandoval PA Internal Medicine 10/11/23 [place] [address] [place] [address] Consulting Physician Obstetrics and Gynecology 06/18/24
--- OUTSIDE RECORDS SUMMARY | 2025-02-25 11:15 | XMS_ITS | Clinical Summary ---
Author Organization [facility] Address [address] [facility] [place] [address] Care Team Providers Care Rotary Pump Operator Name Role Phone Unavailable Primary Care Provider [...]
--- OUTSIDE RECORDS SUMMARY | 2025-02-25 11:15 | XMS_ITS | Encounter Summary ---
Author Organization [facility] Address [address] [place] [address] Phone Care Team Providers Care Work Over Rig Operator Name Role Phone Ernesto Lawrence DO Primary Care Provider [phone] Courtney Francois DO Primary Care Provider + Courtney Francois DO Primary Care Provider + Ana Baires MD Unavailable [phone] Andriy Higginbotham MD Unavailable [phone] Nicolle Schmidt NP Unavailable [phone] Courtney Francois DO Primary Care Provider + Ernesto Lawrence DO Primary Care Provider [phone] Elicia Rogers MD Unavailable [phone] Peng Sandoval Unavailable Unavailabl e Pippa Funes MD Unavailable [phone] Encounter Details Date Type Department Care Team (Latest Contact Info) Description 01/28/2017 Orders Only [facility] Scanning, Provider Social History Tobacco Use Types Packs/Day Years Used Date Smoking Tobacco: Never Assessed Comments Unknown Sex and Gender Information Value Date Recorded Sex Assigned at Not on file Legal Sex Female 9:53 AM POWER EQUIPMENT TECHNOLOGY INSTRUCTOR Gender Identity Not on file Sexual Orientation [...] COVID: Suspected 12/02/2022 12/02/2022 12/02/2022 8:24 AM POWER EQUIPMENT TECHNOLOGY INSTRUCTOR COVID: Suspected 09/03/2023 09/03/2023 09/03/2023 7:04 PM CDT COVID: Suspected 09/03/2023 09/03/2023 09/04/2023 12:32 AM CDT documented as of this encounter Care Teams Work Over Rig Operator Relationship Specialty Start Date End Date Ernesto Lawrence DO [address] [place] [address] PCP - General 01/11/17 05/28/19 Courtney Francois DO [address] [place] [address] PCP - General Family Medicine 05/29/19 05/29/19 Courtney Francois DO [address] [place] [address] PCP - General Family Medicine 05/30/19 10/29/20 Courtney Francois DO [address] [place] [address] PCP - General Family Medicine 10/30/20 12/15/21 Ernesto Lawrence DO [address] [place] [address] PCP - General 12/16/21 Ana Baires MD [facility] [place] [address] Consulting Physician Endocrinology 08/15/19 Andriy Higginbotham MD [address] [address] Consulting Physician Endocrinology Diabetes & Metabolism 10/30/20 Nicolle Schmidt NP [address] [address] Nurse Practitioner Nurse Practitioner 10/30/20 [place] [address] [place] [address] Consulting Physician Obstetrics and Gynecology 10/12/22 06/17/24 Peng Sandoval, PA Internal Medicine 10/11/23 [place] [address] [place] [address] Consulting Physician Obstetrics and Gynecology 06/18/24 documented as of this encounter
--- OUTSIDE RECORDS SUMMARY | 2025-02-25 11:15 | XMS_ITS | Encounter Summary ---
Author Organization [facility] Address [address] [place] [address] Phone Care Team Providers Care Teletypewriter Operator Name Role Phone Ana Baires MD Unavailable [phone] Andriy Higginbotham MD Unavailable [phone] Nicolle Schmidt NP Unavailable Ernesto Lawrence DO Primary Care Provider Elicia Rogers MD Unavailable Peng Sandoval Unavailable [...] on file Legal Sex Female 9:53 AM UNIT CONTROL CLERK Gender Identity Not on file Sexual Orientation [...] documented as of this encounter Care Teams Teletypewriter Operator Relationship Specialty Start Date End Date Ernesto Lawrence DO [address] [place] [address] PCP - General 12/16/21 Ana Baires MD Consulting Physician Endocrinology 08/15/19 Andriy Higginbotham MD [address] [address] Consulting Physician Endocrinology Diabetes & Metabolism 10/30/20 Nicolle Schmidt NP [address] [address] Nurse Practitioner Nurse Practitioner 10/30/20 Elicia Rogers MD [address] [place] [address] Consulting Physician Obstetrics and Gynecology 10/12/22 06/17/24 Peng Sandoval PA Internal Medicine 10/11/23 Pippa Funes MD [address] [place] [address] Consulting Physician Obstetrics and Gynecology 06/18/24 documented as of this encounter
--- OUTSIDE RECORDS SUMMARY | 2025-02-25 11:15 | XMS_ITS | Encounter Summary ---
Author Organization [facility] Address [address] [place] [address] Phone Care Team Providers Care Mold Engraver Name Role Phone Ernesto Lawrence DO Primary Care Provider [phone] Courtney Francois DO Primary Care Provider + Courtney Francois DO Primary Care Provider + Ana Baires MD Unavailable [phone] Andriy Higginbotham MD Unavailable [phone] Nicolle Schmidt NP Unavailable [phone] Courtney Francois DO Primary Care Provider + Ernesto Lawrence DO Primary Care Provider [phone] Elicia Rogers MD Unavailable [phone] Peng Sandoval Unavailable Unavailabl e Pippa Funes MD Unavailable [phone] Encounter Details Date Type Department Care Team (Latest Contact Info) Description 06/29/2016 Orders Only [facility] Scanning, Provider Social History Tobacco Use Types Packs/Day Years Used Date Smoking Tobacco: Never Assessed Comments Unknown Sex and Gender Information Value Date Recorded Sex Assigned at Not on file Legal Sex Female 9:53 AM ASSOCIATE PROFESSOR OF PATHOLOGY Gender Identity Not on file Sexual Orientation [...] COVID: Suspected 12/02/2022 12/02/2022 12/02/2022 8:24 AM ASSOCIATE PROFESSOR OF PATHOLOGY COVID: Suspected 09/03/2023 09/03/2023 09/03/2023 7:04 PM CDT COVID: Suspected 09/03/2023 09/03/2023 09/04/2023 12:32 AM CDT documented as of this encounter Care Teams Mold Engraver Relationship Specialty Start Date End Date Ernesto Lawrence DO [address] [place] [address] PCP - General 01/11/17 05/28/19 Courtney Francois DO [address] [place] [address] PCP - General Family Medicine 05/29/19 05/29/19 Courtney Francois DO [address] [place] [address] PCP - General Family Medicine 05/30/19 10/29/20 Courtney Francois DO [address] [place] [address] PCP - General Family Medicine 10/30/20 12/15/21 Ernesto Lawrence DO [address] [address] PCP - General 12/16/21 Ana Baires MD [facility] [place] [address] Consulting Physician Endocrinology 08/15/19 Andriy Higginbotham MD [address] [address] Consulting Physician Endocrinology Diabetes & Metabolism 10/30/20 Nicolle Schmidt NP [address] [address] Nurse Practitioner Nurse Practitioner 10/30/20 [place] [address] [place] [address] Consulting Physician Obstetrics and Gynecology 10/12/22 06/17/24 Peng Sandoval, PA Internal Medicine 10/11/23 [place] [address] [place] [address] Consulting Physician Obstetrics and Gynecology 06/18/24 documented as of this encounter
[2025-02-25 11:24] LABS: Basophils Percent Auto 0.4 % (0.2-1.2); Eosinophils Percent Auto 0.1 % (0-4.4); Hematocrit 37.3 % (37.0-47.0); Immature Granulocyte Absolute 0.02 K/mm3 (0.00-0.031); Immature Granulocyte Percent A 0.2 % (0-0.5); Lymphocytes Absolute Auto 1.17 K/mm3 (0.9-3.2); Lymphocytes Percent Auto 13.8 % (18.3-44.2); Mean Corpuscular HGB Conc 32.2 g/dl (32-36); Mean Corpuscular Hemoglobin 30.1 pg (26-34); Mean Corpuscular Volume 93.5 fl (80-100); Mean Platelet Volume 10.7 fl (7.4-10.4); Monocytes Absolute Auto 0.3 K/mm3 (0.1-0.6); Monocytes Percent Auto 3.8 % (2.6-8.5); Neutrophils Absolute Auto 6.9 K/mm3 (1.3-6.7); Neutrophils Percent Auto 81.7 % (45.5-73.1); Platelet Count Result 169 k/mm3 (150-375); Red Blood Count 3.99 M/mm3 (4.2-5.4); White Blood Count 8.5 K/mm3 (4.5-10.0)
[2025-02-25 11:32] LABS: Alanine Aminotransferase 25 U/L (6-35); Albumin Level 4.5 g/dL (3.5-5.1); Alkaline Phosphatase 91 U/L (38-126); Anion Gap 11 mmol/L (4-12); Aspartate Amino Transferase 29 U/L (14-36); Bilirubin,Total 0.4 mg/dL (0.2-1.3); Blood Urea Nitrogen 11 mg/dL (7-17); Calcium 8.8 mg/dL (8.4-10.2); Carbon Dioxide 23 mmol/L (22-30); Chloride 98 mmol/L (98-107); Estimated CRCL calculation 82 ml/min; Estimated Glomerular Filt Rate > 60; Glucose 106 mg/dL (65-110); Potassium 3.1 mmol/L (3.4-5.0); Sodium 132 mmol/L (137-145)
--- NOTE | 2025-02-25 13:02 | ED_ITS ---
HPI - General Adult General Chief complaint: Unspecified Stated complaint: flushed feeling, diarrhea, increased HR Time Seen by Provider: 02/25/25 10:45 History of Present Illness HPI narrative: Patient is a 44-year-old female who presents ER with reports of feeling flushed and abdominal cramping. Has happened several times. Was seen over the weekend. Had been taking a new medication and was concerned for slated to the vitamin B12. She has had fatigue, nausea, bloating and diarrhea. Related Data Home Medications ?Medication ?Instructions ?Recorded ?Confirmed ?Last Taken ?Type azelastine 137 mcg (0.1 %) nasal 2 spray intranasal QHS 09/04/23 09/04/23 1 Day Ago History spray ~09/03/23 cetirizine 10 mg tablet (Zyrtec) 10 mg PO QAM 09/04/23 09/04/23 1 Day Ago History ~09/03/23 vitamin-ferrous fumarate 1 tablet PO QHS 09/04/23 09/04/23 1 Day Ago History 40 mg iron-folic acid 1 mg tablet ~09/03/23 Allergies Allergy/AdvReac Type Severity Reaction Status Date / Time almond Allergy Unknown Verified 02/24/25 22:36 Review of Systems 2 Review of Systems: All systems reviewed & are unremarkable except as noted in HPI and below Constitutional: Constitutional: Reports no additional constitutional complaints ENT: Reports system reviewed and no additional complaints, except as documented Cardiovascular: Cardiovascular: Reports no additional cardiovascular complaints Respiratory: Respiratory: Reports no additional respiratory complaints Gastrointestinal: Gastrointestinal: Reports no additional gastrointestinal complaints Musculoskeletal: Musculoskeletal: Reports no additional musculoskeletal complaints PMFSH Past Medical History Medical History History of Clostridioides difficile infection Christina thyroiditis Hyperthyroidism Surgical History Surgical History History of appendectomy Family History Family History Grandparent Hypertension Mother Hypertension Father Family history of Alzheimer's disease Social History Social History Smoking status: Former smoker Tobacco type: cigarettes Second hand tobacco smoke exposure: No Alcohol intake: former Drinks per week: 2 Substance use: never Substance use type: does not use Lack of Transportation: No Lack of Food: Never True Current Housing: I Have Housing Concerned About Future Housing: No Difficulty Paying Gas/Electric Bills: No Difficulty Paying for Meds: No Currently Unemployed: No Education: Master's Degree or Higher Difficulty w/ Childcare or Family Care: No Living arrangements: with family Additional living arrangements comments: and daughter Occupation/Education: occupation Spiritual care concerns: No Agree to blood products: Yes Exam 2 Narrative: GENERAL: Well-appearing, well-nourished, and in no acute distress. HEAD: Normocephalic, atraumatic. ENT: Mucous membranes moist. NECK: Supple. CHEST: Clear to auscultation. No respiratory distress. HEART: Regular rate and rhythm. Normal peripheral pulses. ABDOMEN: Soft, nontender, nondistended. EXTREMITIES: Normal range of motion. No edema. SKIN: Warm, dry, no rash. NEURO: Alert and oriented x3. PSYCH: Normal mood and affect. Course Course Emergency Course: The patient has been taking a vitamin that contains 500% of the daily value of niacin, she has been taking 2 of these so she is getting 1000%. She is having side effects from the niacin and she has been educated about this. Her kidney function is improved from 2 days ago in her potassium is slightly low so has been recommended that she taken individual supplement of potassium or eat potassium rich foods. Vital Signs Vital signs: Vital Signs Temperature 97.6 F 02/25/25 10:00 Pulse Rate 76 02/25/25 10:00 Respiratory Rate 20 02/25/25 10:00 Blood Pressure 119/80 02/25/25 10:00 Pulse Oximetry 100 02/25/25 10:00 Oxygen Delivery Room Air 02/25/25 10:00 Temperature 97.6 F 02/25/25 10:00 Pulse Rate 71 02/25/25 12:03 Respiratory Rate 18 02/25/25 12:03 Blood Pressure 104/67 02/25/25 12:03 Pulse Oximetry 100 02/25/25 12:03 Oxygen Delivery Room Air 02/25/25 10:00 Medical Decision Making Vital Signs Vital Signs: Vital Signs Temperature 97.6 F 02/25/25 10:00 Pulse Rate 76 02/25/25 10:00 Respiratory Rate 20 02/25/25 10:00 Blood Pressure 119/80 02/25/25 10:00 Pulse Oximetry 100 02/25/25 10:00 Oxygen Delivery Room Air 02/25/25 10:00 Temperature 97.6 F 02/25/25 10:00 Pulse Rate 71 02/25/25 12:03 Respiratory Rate 18 02/25/25 12:03 Blood Pressure 104/67 02/25/25 12:03 Pulse Oximetry 100 02/25/25 12:03 Oxygen Delivery Room Air 02/25/25 10:00 Lab Data 02/25/25 11:15 02/25/25 11:15 Labs: Lab Results 02/25/25 02/25/25 Range/Units 11:15 12:43 WBC 8.5 (4.5-10.0) K/mm3 RBC 3.99 L (4.2-5.4) M/mm3 Hgb 12.0 (12.0-15.0) g/dL Hct 37.3 (37.0-47.0) % MCV 93.5 (80-100) fl MCH 30.1 (26-34) pg MCHC 32.2 (32-36) g/dl RDW 12.0 (11.5-14.5) % Plt Count 169 (150-375) k/mm3 MPV 10.7 H (7.4-10.4) fl Immature Gran % (Auto) 0.2 (0-0.5) % Neut % (Auto) 81.7 H (45.5-73.1) % Lymph % (Auto) 13.8 L (18.3-44.2) % [place] % (Auto) 3.8 (2.6-8.5) % Eos % (Auto) 0.1 (0-4.4) % Baso % (Auto) 0.4 (0.2-1.2) % Lymph # (Auto) 1.17 (0.9-3.2) K/mm3 [place] # (Auto) 0.3 (0.1-0.6) K/mm3 Eos # (Auto) 0.0 (0-0.3) K/mm3 Baso # (Auto) 0.0 (0.0-0.1) K/mm3 Abs Immat Gran (auto) 0.02 (0.00-0.031) K/mm3 Absolute Neuts (auto) 6.9 H (1.3-6.7) K/mm3 Absolute Nucleated RBC 0.000 (0.0-0.012) K/mm3 Nucleated RBC % 0.0 (0.0-0.2) % Sodium 132 L (137-145) mmol/L Potassium 3.1 L (3.4-5.0) mmol/L Chloride 98 (98-107) mmol/L Carbon Dioxide 23 (22-30) mmol/L Anion Gap 11 (4-12) mmol/L BUN 11 D (7-17) mg/dL Creatinine 0.58 L (0.7-1.0) mg/dL Estim Creat Clear Calc 82 ml/min Estimated GFR > 60 (59 - ) Glucose 106 (65-110) mg/dL Calcium 8.8 (8.4-10.2) mg/dL Total Bilirubin 0.4 (0.2-1.3) mg/dL AST 29 (14-36) U/L ALT 25 (6-35) U/L Alkaline Phosphatase 91 (38-126) U/L Total Protein 8.0 (6.3-8.2) g/dL Albumin 4.5 (3.5-5.1) g/dL Influenza A (RT-PCR) Pending Influenza B (RT-PCR) Pending RSV (RT-PCR) Pending SARS-CoV-2 RNA (RT-PCR) Pending Discharge Plan Discharge Clinical Impression: Side effect of medication Patient Disposition: Home Condition: Stable Additional Instructions: You had a side effect to niacin causing her symptoms. Follow-up with your primary care doctor for further treatment evaluation. Patient Language: Martiniquais Prescriptions: No Action cetirizine [Zyrtec] 10 mg Tablet 10 mg PO QAM (w/o vit A)-Fe fum-FA 40 mg iron-1 mg Tablet 1 tablet PO QHS azelastine 137 mcg (0.1 %) aerosol,spray 2 spray INTRANASAL QHS Rx Instructions: 2 sprays each nostril fidaxomicin 200 mg tablet 200 mg PO Q12H Qty: 18 0RF Follow-up/Referrals: Howard,MD Ernesto [Primary Care Provider] - 1 Week
[2025-02-25 13:27] LABS: Influenza A QL RT-PCR Negative (Negative); Influenza B QL RT-PCR Negative (Negative); RSV RNA, RT-PCR Negative (Negative); SARS-CoV-2 RNA PCR Negative (Negative)
--- OUTSIDE RECORDS SUMMARY | 2025-02-25 13:55 | XMS_ITS | Clinical Summary ---
Author Organization [facility] Address [address] [place] [address] Care Team Providers Care Procurement Assistant Name Role Phone PriscilaCourtney Primary Care Provider [phone] Source Comments [facility],non-owned Affiliates and Associated Physician Practices is amultiple site organization consisting of ambulatory clinics and hospital sitesin [place] and [place]. This disclosure is being madepursuant to the Care Everywhere program and may not contain all information available regarding this patient. Last updated 18.[facility] Allergies No known active allergies Medications * [...] Risk HPV DNA testing was not performed. Multi Punch Operator [facility] Comment: MVB, CT(ASCP) Test Performed at: [facility] [address] [place] [id number] ALEKS RENEE DO MICROSCOPIC CYTOLOGIC EXAMINATION OF SMEAR OF SPECIMEN FROM FEMALE GENITAL TRACT PREPARED USING PAPANICOLAOU TECHNIQUE / Unknown 02/22/2012 11:12 AM CDT 02/22/2012 11:11 PM CDT Carlos Lemus MD LAB - PATHOLOGY/CYT OLOGY ORDERABLES [facility] [address] [place] [address] from Last 3 Months or Most Recently Relevant to Health Maintenance Care Teams Procurement Assistant Relationship Specialty Start Date End Date Courtney Francois DO [address] [place] [id number] PCP - General Family Medicine 03/15/18
--- OUTSIDE RECORDS SUMMARY | 2025-02-25 13:55 | XMS_ITS | Referral Summary ---
Author Organization [facility] Address [address] [place] [address] Care Team Providers Care Spiritual Care Coordinator Name Role Phone Ana Baires MD Unavailable [phone] Andriy Higginbotham MD Unavailable Nicolle Schmidt WOOD HEEL FLAP INSERTER Unavailable Ernesto Lawrence DO Primary Care Provider Peng Sandoval Unavailable Unavailabl e Pippa Funes MD Unavailable [phone] Encounters Date Type Department Care Team Description 01/22/2025 Orders Only [facility] [id number] [address] [phone] Pippa Funes MD Vaginal discharge (Primary Dx) 01/18/2025 Results Follow-Up [facility] [address] [address] [phone] Amy Garcia NP 01/17/2025 7:16 PM SUBSORTER - 01/17/2025 11:59 PM SUBSORTER Hospital Encounter [facility] [place] [id number] [place] [address] Vaginal discharge Discharge Disposition: Discharge to home or self care 01/17/2025 8:55 AM SUBSORTER Office Visit [facility] [address] [address] [phone] Amy Garcia NP Vaginal discharge (Primary Dx); Pelvic and perineal pain 01/16/2025 Telephone [facility] [address] [facility] [place] [phone] Pippa Funes MD [...] (ADVIL,MOTRIN) 800 mg tablet 3 Active vit 82-xdrn-xmxwl-d matthews 27mg iron- 800 mcg-250 mg capsule [...] 05/29/2019 Assessment & Plan (10/31/2020 11:08 AM SUBSORTER): TFT's WNL and stable x 1 year, [...] on file Legal Sex Female 9:53 AM SUBSORTER Gender Identity Not on file Sexual Orientation Not on file Last Filed Vital Signs Vital Sign Reading Time Taken Comments Blood Pressure 125/71 01/17/2025 9:05 AM SUBSORTER Pulse 78 03/08/2024 11:09 AM CDT Temperature 36.4 C (97.6 F) 03/08/2024 11:09 AM CDT Respiratory Rate 18 03/08/2024 11:09 AM CDT Oxygen Saturation 97% 03/08/2024 11:09 AM CDT Inhaled Oxygen Concentration - - Weight 59.4 kg (131 lb) 01/17/2025 9:05 AM SUBSORTER Height 160 cm (5' 3 ) 01/17/2025 9:05 AM SUBSORTER Body Mass Index 23.21 01/17/2025 9:05 AM SUBSORTER Plan of Treatment Not on file Procedures Procedure Name Priority Date/Time Associated Diagnosis Comments VAGINITIS PANEL Routine 01/17/2025 12:00 PM SUBSORTER Vaginal discharge THINPREP IMAGING PAP AND HPV [...] (ABNORMAL) Vaginitis panel Vaginal (01/17/2025 12:00 PM SUBSORTER) Cristy DNA probe Not Detected Not Detected Gardnerella DNA probe Detected(A) Not Detected [facility] Trichomonas DNA probe Not Detected Not Detected [facility] Comment: Interpretive Data Testing performed by [facility] via Affirm VPIII Microbial Identification Test, a [...] on 2020. Vaginal 01/17/2025 12:0 0 PM SUBSORTER 01/17/2025 8:42 PM SUBSORTER us Amy Garcia NP LAB MICROBIOLOGY - GENERAL OR DERABLES Final Result [facility] [address] Department [place] [address] * ThinPrep(R) Imaging Pap and HPV mRNA E6/E7 Reflex HPV 16,18/45 (06/18/2024 1:23 PM CDT) CLINICAL INFORMATION: [facility] Comment:43YO WWE LMP [facility] Comment:NONE GIVEN Previous Pap [facility] Comment:NONE GIVEN Prev. Bx [facility] Comment:NONE GIVEN SOURCE: [facility] Comment:None given Pap, specimen adequacy [facility] Comment: Satisfactory for evaluation. Endocervical/transformation zone component present. Age and/or menstrual status not provided HPV interp [facility] Comment: Cytology Results: Negative for intraepithelial lesion or malignancy. COMMENTS [facility] Comment: This Pap test has been evaluated with computer assisted technology. Director Center [facility] Comment: TMK, CT(ASCP) CT screening location: [place] [address] [place] [address] Comment [facility] Comment: EXPLANATORY NOTE: The Pap is a [...] High Risk E6/E7 Not Detected Not Detected [facility] Comment: Methodology: Glass Laminating Operator-Mediated Amplification This assay detects E6/E7 viral messenger RNA (mRNA) from 14 high-risk HPV types (16,18,31,33,35,39,45,51,52,56,58,59,66,68). Cervical sources are required for HPV testing. If a vaginal source from a patient who has had a total hysterectomy with removal of cervix was submitted, please contact the testing laboratory for alternative testing options. For additional information, please refer to [email or web address]/faq/EWT246n3 (This link if provided for information/ educational purposes only.) Swab (Cervical) 06/18/2024 1 :23 PM CDT 06/19/2024 2:06 AM CDT Pippa Funes MD LAB CYTOLOGY ORDERABLES F inal Result [facility] [address] [place] [address] [employer] [address] [place] [address] * Screening Mammogram Bilateral W Ilia (02/16/2024 [...] compared to prior imaging studies performed at [facility] on 11/10/2021, and at [facility] on 12/25/2021 and 02/14/2023. MAMMOGRAM FINDINGS: [...] compared to prior imaging studies performed at [facility] on 11/10/2021, and at [facility] on 12/25/2021 and 02/14/2023. MAMMOGRAM FINDINGS: [...] Most Recently Relevant to Health Maintenance Insurance [facility] [employer] [address] [address] [place] [address] [facility] [place] [address] Care Teams Spiritual Care Coordinator Relationship Specialty Start Date End Date Ernesto Lawrence DO [address] [place] [address] PCP - General 12/16/21 Ana Baires MD Consulting Physician Endocrinology 08/15/19 Andriy Higginbotham MD [address] [address] Consulting Physician Endocrinology Diabetes & Metabolism 10/30/20 Nicolle Schmidt NP [address] [address] Nurse Practitioner Nurse Practitioner 10/30/20 Peng Sandoval PA Internal Medicine 10/11/23 [place] [address] [place] [address] Consulting Physician Obstetrics and Gynecology 06/18/24
--- OUTSIDE RECORDS SUMMARY | 2025-02-25 13:55 | XMS_ITS | Encounter Summary ---
Author Organization [facility] Address [address] [place] [address] Care Team Providers Care Supply Chain Associate Name Role Phone Ana Baires MD Unavailable [phone] Andriy Higginbotham MD Unavailable [phone] Nicolle Schmidt NP Unavailable Ernesto Lawrence DO Primary Care Provider Peng Sandoval Unavailable Unavailabl e Pippa Funes MD Unavailable [phone] Encounter Details Date Type Department Care Team (Late st Contact Info) Description 01/18/2025 Results Follow-Up [facility] [address] [address] [phone] Amy Garcia SUPERVISOR [place] [employer] [address] [place] [address] Social History Tobacco Use Types [...] on file Legal Sex Female 9:53 AM FORCE ADJUSTMENT SUPERVISOR Gender Identity Not on file Sexual Orientation Not on file documented as of this encounter Plan of Treatment Not on file documented as of this encounter Visit Diagnoses Not on filedocumented in this encounter Care Teams Supply Chain Associate Relationship Specialty Start Date End Date Ernesto Lawrence DO [address] [place] [address] PCP - General 12/16/21 Ana Baires MD Consulting Physician Endocrinology 08/15/19 Andriy Higginbotham MD [address] [address] Consulting Physician Endocrinology Diabetes & Metabolism 10/30/20 Nicolle Schmidt NP [address] [address] Nurse Practitioner Nurse Practitioner 10/30/20 Peng Sandoval PA Internal Medicine 10/11/23 [place] [address] [place] [address] Consulting Physician Obstetrics and Gynecology 06/18/24 documented as of this encounter
--- OUTSIDE RECORDS SUMMARY | 2025-02-25 13:55 | XMS_ITS | Encounter Summary ---
Author Organization [facility] Address [address] [place] [address] Phone Care Team Providers Care Box Spring Maker Name Role Phone Ernesto Lawrence DO Primary Care Provider [phone] Courtney Francois DO Primary Care Provider + Courtney Francois DO Primary Care Provider + Ana Baires MD Unavailable [phone] Andriy Higginbotham MD Unavailable [phone] Nicolle Schmidt NP Unavailable [phone] Courtney Francois DO Primary Care Provider + Ernesto Lawrence DO Primary Care Provider + [phone] Elicia [place] MD Unavailable [phone] Peng Sandoval Unavailable Unavailabl e Pippa Funes MD Unavailable [phone] Encounter Details Date Type Department Care Team (Latest Contact Info) Description 06/29/2016 Orders Only [facility] Scanning, Provider Social History Tobacco Use Types Packs/Day Years Used Date Smoking Tobacco: Never Assessed Comments Unknown Sex and Gender Information Value Date Recorded Sex Assigned at Not on file Legal Sex Female 9:53 AM COMPUTER APPLICATIONS ENGINEER Gender Identity Not on file Sexual [...] COVID: Suspected 12/02/2022 12/02/2022 12/02/2022 8:24 AM COMPUTER APPLICATIONS ENGINEER COVID: Suspected 09/03/2023 09/03/2023 09/03/2023 7:04 PM CDT COVID: Suspected 09/03/2023 09/03/2023 09/04/2023 12:32 AM CDT documented as of this encounter Care Teams Box Spring Maker Relationship Specialty Start Date End Date Ernesto Lawrence DO [address] [address] PCP - General 01/11/17 05/28/19 Courtney Francois DO [address] [place] [address] PCP - General Family Medicine 05/29/19 05/29/19 Courtney Francois DO [address] [place] [address] PCP - General Family Medicine 05/30/19 10/29/20 Courtney Francois DO [address] [place] [address] PCP - General Family Medicine 10/30/20 12/15/21 Ernesto Lawrence DO [address] [place] [address] PCP - General 12/16/21 Ana Baires MD [facility] [place] [address] Consulting Physician Endocrinology 08/15/19 Andriy Higginbotham MD [address] [address] Consulting Physician Endocrinology Diabetes & Metabolism 10/30/20 Nicolle Schmidt NP [address] [address] Nurse Practitioner Nurse Practitioner 10/30/20 [place] [address] [place] [address] Consulting Physician Obstetrics and Gynecology 10/12/22 06/17/24 Peng Sandoval, PA Internal Medicine 10/11/23 [place] [address] [place] [address] Consulting Physician Obstetrics and Gynecology 06/18/24 documented as of this encounter
--- OUTSIDE RECORDS SUMMARY | 2025-02-25 13:55 | XMS_ITS | Clinical Summary ---
Author Organization [facility] Address [address] [place] [address] Care Team Providers Care Tonguer Name Role Phone Ana Baires MD Unavailable [phone] Andriy Higginbotham MD Unavailable [phone] Nicolle Schmidt DIALYSIS SOCIAL WORKER Unavailable [phone] Ernesto Lawrence DO Primary Care Provider [phone] Peng Sandoval Unavailable Unavailabl e Pippa Funes MD Unavailable [phone] Allergies Active Allergy Reactions Criticality Noted Date [...] (ADVIL,MOTRIN) 800 mg tablet 3 Active vit 36-ycgd-trznb-d matthews 27mg iron- 800 mcg-250 mg capsule [...] 05/29/2019 Assessment & Plan (10/31/2020 11:08 AM MOBILE PHLEBOTOMIST): TFT's WNL and stable x 1 year, [...] 01/22/2025 Orders Only [facility] [address] [place] [address] Pippa Funes MD Vaginal discharge (Primary Dx) 01/18/2025 Results Follow-Up [facility] [address] [place] [id number] Amy Garcia NP 01/17/2025 7:16 PM MOBILE PHLEBOTOMIST - 01/17/2025 11:59 PM MOBILE PHLEBOTOMIST Hospital Encounter [facility] [address] [place] [id number] Vaginal discharge Discharge Disposition: Discharge to home or self care 01/17/2025 8:55 AM MOBILE PHLEBOTOMIST Office Visit [facility] [place] [id number] Amy Garcia NP Vaginal discharge (Primary Dx); Pelvic and perineal pain 01/16/2025 Telephone [facility] [place] [phone] Pippa Funes MD Vaginitis/Bacterial Vaginosis from Last 3 Months Surgical History Surgery Date Site/Laterality Comments PA HYSTEROSCOPY BX ENDOMETRIUM&/POLYPC W/WO D&C Hysteroscopy - [...] on file Legal Sex Female 9:53 AM MOBILE PHLEBOTOMIST Gender Identity Not on file Sexual Orientation [...] Comments Blood Pressure 125/71 01/17/2025 9:05 AM MOBILE PHLEBOTOMIST Pulse 78 03/08/2024 11:09 AM CDT Temperature 36.4 C (97.6 F) 03/08/2024 11:09 AM CDT Respiratory Rate 18 03/08/2024 11:09 AM CDT Oxygen Saturation 97% 03/08/2024 11:09 AM CDT Inhaled Oxygen Concentration - - Weight 59.4 kg (131 lb) 01/17/2025 9:05 AM MOBILE PHLEBOTOMIST Height 160 cm (5' 3 ) 01/17/2025 9:05 AM MOBILE PHLEBOTOMIST Body Mass Index 23.21 01/17/2025 9:05 AM MOBILE PHLEBOTOMIST Plan of Treatment Health Maintenance Due Date [...] Comments VAGINITIS PANEL Routine 01/17/2025 12:00 PM MOBILE PHLEBOTOMIST Vaginal discharge THINPREP IMAGING PAP AND HPV [...] (ABNORMAL) Vaginitis panel Vaginal (01/17/2025 12:00 PM MOBILE PHLEBOTOMIST) Pathologist [facility] Cristy DNA probe Not Detected Not Detected Gardnerella DNA probe Detected(A) Not Detected [facility] Trichomonas DNA probe Not Detected Not Detected [facility] Comment: Interpretive Data Testing performed by [facility] via Affirm VPIII Microbial Identification Test, a [...] on 2020. Vaginal 01/17/2025 12:0 0 PM MOBILE PHLEBOTOMIST 01/17/2025 8:42 PM MOBILE PHLEBOTOMIST us Amy Garcia NP LAB MICROBIOLOGY - GENERAL OR DERABLES Final Result [facility] [address] Department [place] [address] * ThinPrep(R) Imaging Pap and HPV mRNA E6/E7 Reflex HPV 16,18/45 (06/18/2024 1:23 PM CDT) [facility] CLINICAL INFORMATION: [employer] Comment:43YO WWE LMP [facility] Comment:NONE GIVEN Previous Pap [facility] Comment:NONE GIVEN Prev. Bx [facility] Comment:NONE GIVEN SOURCE: [facility] Comment:None given Pap, specimen adequacy [facility] Comment: Satisfactory for evaluation. Endocervical/transformation zone component present. Age and/or menstrual status not provided HPV interp [facility] Comment: Cytology Results: Negative for intraepithelial lesion or malignancy. COMMENTS [facility] Comment: This Pap test has been evaluated with computer assisted technology. Tuber Machine Operator Helper Que [facility] Comment: TMK, CT(ASCP) CT screening location: [place] [address] [address] [place] [address] Comment [facility] Comment: EXPLANATORY NOTE: The Pap is [...] High Risk E6/E7 Not Detected Not Detected [facility] Comment: Methodology: Videogame Designer-Mediated Amplification This assay detects E6/E7 viral messenger RNA (mRNA) from 14 high-risk HPV types (16,18,31,33,35,39,45,51,52,56,58,59,66,68). Cervical sources are required for HPV testing. If a vaginal source from a patient who has had a total hysterectomy with removal of cervix was submitted, please contact the testing laboratory for alternative testing options. For additional information, please refer to http://education.Sandboxx/faq/NYC642z9 (This link if provided for information/ educational purposes only.) Swab (Cervical) 06/18/2024 1 :23 PM CDT 06/19/2024 2:06 AM CDT Pippa Funes MD LAB CYTOLOGY ORDERABLES F inal Result [place] [address] [address] [place] [address] [facility] [address] [place] [address] * Screening Mammogram Bilateral W Ilia (02/16/2024 [...] compared to prior imaging studies performed at [facility] on 11/10/2021, and at [facility] on 12/25/2021 and 02/14/2023. MAMMOGRAM FINDINGS: [...] compared to prior imaging studies performed at [facility] on 11/10/2021, and at [facility] on 12/25/2021 and 02/14/2023. MAMMOGRAM FINDINGS: [...] Most Recently Relevant to Health Maintenance Insurance [facility] ANTHEM ACCESS CHOICE [employer] Display System Address: [place] [address] ANTHEM ACCESS CHOICE [employer] Display System Address: [address] [place] [address] [employer] ACCESS CHOICE [employer] Display System Address: [place] [address] [place] [address] Care Teams Tonguer Relationship Specialty Start Date End Date Ernesto Lawrence DO [address] [place] [address] PCP - General 12/16/21 Ana Baires MD Consulting Physician Endocrinology 08/15/19 Andriy Higginbotham MD [address] [id number] Consulting Physician Endocrinology Diabetes & Metabolism 10/30/20 Nicolle Schmidt NP [address] [id number] Nurse Practitioner Nurse Practitioner 10/30/20 Peng Sandoval PA Internal Medicine 10/11/23 [place] [address] [place] [address] Consulting Physician Obstetrics and Gynecology 06/18/24
--- OUTSIDE RECORDS SUMMARY | 2025-02-25 13:55 | XMS_ITS | Encounter Summary ---
Author Organization [facility] Address [address] [place] [address] Phone Care Team Providers Care Boilers Inspector Name Role Phone Ernesto Lawrence DO Primary Care Provider [phone] Courtney Francois DO Primary Care Provider + Courtney Francois DO Primary Care Provider + Ana Baires MD Unavailable [phone] Andriy Higginbotham MD Unavailable [phone] Nicolle Schmidt NP Unavailable [phone] Courtney Francois DO Primary Care Provider + Ernesto Lawrence DO Primary Care Provider [phone] Elicia Rogers MD Unavailable [phone] Peng Sandoval Unavailable Unavailabl e Pippa Funes MD Unavailable [phone] Encounter Details Date Type Department Care Team (Latest Contact Info) Description 01/28/2017 Orders Only [facility] Scanning, Provider Social History Tobacco Use Types Packs/Day Years Used Date Smoking Tobacco: Never Assessed Comments Unknown Sex and Gender Information Value Date Recorded Sex Assigned at Not on file Legal Sex Female 9:53 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 Gender Identity Not on file Sexual Orientation [...] COVID: Suspected 12/02/2022 12/02/2022 12/02/2022 8:24 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 COVID: Suspected 09/03/2023 09/03/2023 09/03/2023 7:04 PM CDT COVID: Suspected 09/03/2023 09/03/2023 09/04/2023 12:32 AM CDT documented as of this encounter Care Teams Boilers Inspector Relationship Specialty Start Date End Date Ernesto Lawrence DO [address] [place] [address] PCP - General 01/11/17 05/28/19 Courtney Francois DO [address] [place] [address] PCP - General Family Medicine 05/29/19 05/29/19 Courtney Francois DO [address] [place] [address] PCP - General Family Medicine 05/30/19 10/29/20 Courtney Francois DO [address] [place] [address] PCP - General Family Medicine 10/30/20 12/15/21 Ernesto Lawrence DO [address] [place] [address] PCP - General 12/16/21 Ana Baires MD [facility] [place] [address] Consulting Physician Endocrinology 08/15/19 Andriy Higginbotham MD [address] [address] Consulting Physician Endocrinology Diabetes & Metabolism 10/30/20 Nicolle Schmidt NP [address] [address] Nurse Practitioner Nurse Practitioner 10/30/20 [place] [address] [place] [address] Consulting Physician Obstetrics and Gynecology 10/12/22 06/17/24 Peng [place], PA Internal Medicine 10/11/23 [place] [address] [place] [address] Consulting Physician Obstetrics and Gynecology 06/18/24 documented as of this encounter
--- OUTSIDE RECORDS SUMMARY | 2025-02-25 13:55 | XMS_ITS | Encounter Summary ---
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 COORDINATOR Gender Identity Not on file Sexual Orientation [...] documented as of this encounter Care Teams Veterinary Dentist Relationship Specialty Start Date End Date Ernesto Lawrence DO [address] [place] [address] PCP - General 12/16/21 Ana Baires MD Consulting Physician Endocrinology 08/15/19 Andriy Higginbotham MD [address] [address] Consulting Physician Endocrinology Diabetes & Metabolism 10/30/20 Nicolle Schmidt NP [address] [address] Nurse Practitioner Nurse Practitioner 10/30/20 Elicia Rogers MD [address] [place] [address] Consulting Physician Obstetrics and Gynecology 10/12/22 06/17/24 Peng [place] PA Internal Medicine 10/11/23 Pippa Funes MD [address] [place] [address] Consulting Physician Obstetrics and Gynecology 06/18/24 documented as of this encounter
--- OUTSIDE RECORDS SUMMARY | 2025-02-25 13:55 | XMS_ITS | Clinical Summary ---
Author Organization [facility] Address [address] [facility] [place] [address] Care Team Providers Care Surveyor Mine Name Role Phone Unavailable Primary Care Provider [...]
== END 2025-02-25 13:23 | disposition home or self-care (01) ==
PROVIDERS: Emergency Provider Emergency Medicine; PCP Internal Medicine
DX: R23.2 Flushing (principal); R10.9 Unspecified abdominal pain; T46.7X5A Adverse effect of peripheral vasodilators, initial encounter; Z20.822 Contact with and (suspected) exposure to COVID-19; E06.3 Autoimmune thyroiditis; Z87.891 Personal history of nicotine dependence
CPT/HCPCS: 36415; 80053; 85025; 87637; 99283

== ENCOUNTER 2025-08-24 09:08 | Emergency (ER) | payer BC, SELFPAY ==
--- NOTE | 2025-08-24 09:26 | ED_ITS ---
HPI - URI/Sore Throat General Chief Complaint: Upper Respiratory Infection Stated Complaint: SORE THROAT/SINUS DRAINAGE Time Seen by Provider: 08/24/25 09:25 Source: patient Mode of arrival: ambulatory Limitations: no limitations History of Present Illness HPI Narrative: Prerna is a 44-year-old female patient presenting to the clinic today with complaints with complaints of sore throat, cough, sinus pressure, and sinus drainage x5 days. Denies any known fevers, chills, body aches. Is coughing up and blowing out some green drainage today. Denies any shortness of breath or chest pain. Has taken Mucinex. MD elicited complaint: sore throat and nasal congestion Related Data Home Medications ?Medication ?Instructions ?Recorded ?Confirmed ?Last Taken ?Type azelastine 137 mcg (0.1 %) nasal 2 spray intranasal QH S 09/04/23 09/04/23 1 Day Ago History spray ~09/03/23 cetirizine 10 mg tablet (Zyrtec) 10 mg PO QAM 09/04/23 09/04/23 1 Day Ago History ~09/03/23 vitamin-ferrous fumarate 1 tablet PO QHS 08/2109/04/23 1 Day Ago History 40 mg iron-folic acid 1 mg tablet ~ Allergies Allergy/AdvReac Type Severity Reaction Status Date / Time clindamycin Allergy Severe C-diff Verified 08/24/25 09:19 almond Allergy Unknown Verified 08/24/25 09:19 Review of Systems Review of Systems: Pertinent positives per HPI. Patient denies any fever, chills, rash, visual changes, dizziness, shortness of breath, chest pain, palpitations, nausea, vomiting, diarrhea, constipation, abdominal pain, or any urinary issues. [facility] Past Medical History Medical History History of Clostridioides difficile infection Christina thyroiditis Hyperthyroidism Surgical History Surgical History History of appendectomy Family History Family History Grandparent Hypertension Mother Hypertension Father Family history of Alzheimer's disease Social History Social History Smoking status: Former smoker Tobacco type: cigarettes Second hand tobacco smoke exposure: No Alcohol intake: former Drinks per week: 2 Substance use: never Substance use type: does not use Lack of Transportation: No Lack of Food: Never True Current Housing: I Have Housing Concerned About Future Housing: No Difficulty Paying Gas/Electric Bills: No Difficulty Paying for Meds: No Currently Unemployed: No Education: Master's Degree or Higher Difficulty w/ Childcare or Family Care: No Living arrangements: with family Additional living arrangements comments: and daughter Occupation/Education: occupation Spiritual care concerns: No Agree to blood products: Yes Comments At the time of my signature, I reviewed and agree with the nursing past medical, surgical, social, and family history. There is no relevant family history pertinent to the patient complaint. Exam Narrative: General: Well-developed, well nourished, in no apparent distress Head: Normocephalic, atraumatic Eyes: Pupils equally round and reactive to light bilaterally, EOM intact, sclera and conjunctive clear, no discharge, lids normal Ears: TMs intact and congested, ear canals clear, no drainage, grossly hearing normal. Nose: Nares patent, clear nasal discharge, mild inflammation, frontal sinus tenderness. Mouth: Oral pharynx without lesions or masses, good dentition, MMM. Postnasal drip Neck: Supple, trachea midline, no enlargement of anterior or posterior cervical nodes, no thyroid masses or goiter palpable. Cardio: Regular rate and rhythm, s1 and s2 normal, no murmur appreciated. Resp: Clear to auscultation bilaterally, no rhonchi, rales, wheezing or rubs Course Course Emergency Course: Portions of this record may have been created with voice recognition software. Level of Care: Express Care Visit Vital Signs Vital signs: Vital Signs Temperature 36.2 C L 08/24/25 09:28 Pulse Rate 70 08/24/25 09:28 Respiratory Rate 16 08/24/25 09:28 Blood Pressure 100/64 08/24/25 09:28 Pulse Oximetry 100 08/24/25 09:28 Temperature 36.2 C L 08/24/25 09:28 Pulse Rate 70 08/24/25 09:28 Respiratory Rate 16 08/24/25 09:28 Blood Pressure 100/64 08/24/25 09:28 Pulse Oximetry 100 08/24/25 09:28 Vital signs reviewed MDM - URI/Sore Throat MDM Narrative Medical decision making narrative: At the time of visit patient is resting comfortably on the exam table. Patient appears to be nontoxic. complaints of sore throat, cough, sinus pressure, and sinus drainage x5 days. Denies any known fevers, chills, body aches. Is coughing up and blowing out some green drainage today. Denies any shortness of breath or chest pain. Has taken Mucinex for her symptoms. On exam patient has bilateral TMs congested, clear nasal drainage, frontal sinus tenderness, oral pharynx mildly red with postnasal drip, lung sounds are clear, heart rates regular rate rhythm. Strep test was ordered. Labs: Strep test was negative in the clinic today. We will send strep for culture. Plan: I suspect patient has URI/postnasal drip. Prescription for prednisone was sent to pharmacy to help with congestion. Supportive measures were discussed with the patient and they voiced understanding discharge instructions and agrees to treatment plan. Return precautions reviewed Differential Diagnosis Differential diagnosis: Likely upper respiratory infection, otitis media, sinusitis, viral infection, bronchitis, influenza, pharyngitis and other (COVID) Discharge Plan Discharge Clinical Impression: URI (upper respiratory infection) Qualifiers: URI type: unspecified URI Qualified Code(s): J06.9 - Acute upper respiratory infection, unspecified Patient Disposition: Home Condition: Stable Instructions: Antibiotic Form, Cold Symptoms (ED) Additional Instructions: Strep test was negative in the clinic today. We will send strep for culture. If the culture comes back positive we will call you in place you on antibiotics at that time Take prescription medications only as prescribed-prednisone Increase fluids and stay well hydrated May take Tylenol or motrin as directed on bottle for pain/fever May use Flonase 1 spray in each nare daily May take OTC antihistamines such as Zyrtec or Claritin daily as directed on bottle May apply Vicks vapor rub to chest to open sinuses Sinus rinses for congestion Cepacol spray, cough drops, throat lozenges, warm tea with honey/lemon, gargle salt water to soothe throat BRAT diet for diarrhea Clear liquids x 24 hours then advance as tolerated for nausea/vomiting Go to the ED if you develop a worsening in your condition- high fever not controlled by Tylenol or Motrin, dehydration, weakness, lethargy, shortness of breath, or chest pain. Follow up with your PCP in 3-5 days if symptoms persist. Patient Language: Greenlandic Prescriptions: New prednisone 20 mg tablet 40 mg PO DAILY 5 Days Qty: 10 0RF No Action cetirizine [Zyrtec] 10 mg Tablet 10 mg PO QAM (w/o vit A)-Fe fum-FA 40 mg iron-1 mg Tablet 1 tablet PO QHS azelastine 137 mcg (0.1 %) aerosol,spray 2 spray INTRANASAL QHS Rx Instructions: 2 sprays each nostril fidaxomicin 200 mg tablet 200 mg PO Q12H Qty: 18 0RF Follow-up/Referrals: Howard,Ernesto Fink [Other] Time of Disposition: 09:30 Quality NIHSS Nursing Documentation ED NIHSS nursing documentation: reviewed/agree
[2025-08-24 09:28] VITALS: BP 100/64; PULSE 70; RESP 16; TEMP 36.2; O2SAT 100
[2025-08-24 09:37] LABS: EDSTREPNEGPOS1 Negative (Negative)
== END 2025-08-24 09:37 | disposition home or self-care (01) ==
PROVIDERS: Emergency Provider Nurse Practitioner Family
DX: J06.9 Acute upper respiratory infection, unspecified (principal); E06.3 Autoimmune thyroiditis; E05.90 Thyrotoxicosis, unspecified without thyrotoxic crisis or storm; Z87.891 Personal history of nicotine dependence
CPT/HCPCS: 87081; 87880; 99213; G0463